=== PATIENT | female | born 1975 | race Caucasian/White ===

== ENCOUNTER 2017-01-01 13:36 | Observation (INO) ==
--- NOTE | 2017-01-01 14:00 | EKG Report ---
Stationary ECG Study [facility] Test Date: 01/01/2017 2:01:15 PM Pat Name: ELIEZER KEYS Department: Room: Gender: F Hide Dropper: : 1975 Requested by: Jonathan Yuen Order Number: [id number] Reading MD: JAE WING Intervals Naoma Rate: 120 P: 45 ND: 180 QRS: -54 QRSD: 106 T: 107 QT: 341 QTc: 412 Interpretive Statements SINUS TACHYCARDIA PATTERN CONSISTENT WITH PULMONARY DISEASE LEFT ANTERIOR FASCICULAR BLOCK LEFT VENTRICULAR HYPERTROPHY AND ST-T CHANGE Electronically Signed On 01-02-17 18:58:34 CDT by JAE WING [email or web address]
[2017-01-01] MEDS ORDERED: ONDANSETRON 4 MG/2 ML VIAL IV STA (14:01)
[2017-01-01] MEDS ORDERED: SODIUM CHLORIDE 0.9% 1,000 ML IV STA (14:01)
[2017-01-01] MEDS ORDERED: PROMETHAZINE 25 MG/1 ML VIAL IM STA (14:01)
[2017-01-01 14:05] LABS: Basophils # 0.1 10*3/uL (0.0-0.2); Basophils % 0.2 % (0.0-0.8); Hematocrit 45.9 VOL% (35.7-47.0); Hemoglobin 15.4 GM/DL (12.0-16.0); Immature Granulocytes % 1.7 %; Immature Granulocytes Absolute 0.46 #; Lymphocytes # 4.8 10*3/uL (1.4-4.0); Lymphocytes % 17.8 % (21.3-54.2); Mean Corpuscular HGB Conc 33.6 GM/DL (32-36); Mean Corpuscular Hemoglobin 27 PG (27-34); Mean Corpuscular Volume 80.8 FL (87-102); Mean Platelet Volume 10.3 FL (9.6-12.0); Monocytes # 1.4 10*3/uL (0.11-0.8); Monocytes % 5.3 % (1.7-12.7); Neutrophils # 20.4 10*3/uL (1.4-7.4); Platelet Count 514 T/CUMM (130-400); Red Blood Count 5.68 MC/CUMM (3.8-5.5); Red Cell Distribution Width 14.8 % (9.3-17.3); White Blood Count 27.1 T/CUMM (4-12)
[2017-01-01 14:16] LABS: INR 1.1; PT Patient Result 11.4 SECS; Partial Thromboplastin Time 28.7 SECS (0-40)
[2017-01-01] MEDS ORDERED: ONDANSETRON 4 MG/2 ML VIAL ONE ×2 (14:19→17:26)
[2017-01-01] MEDS ORDERED: PROMETHAZINE 25 MG/1 ML VIAL ONE (14:19)
--- NOTE | 2017-01-01 14:28 | Emergency Department Note ---
Yakov Witt Gwan, am scribing for, and in the presence of, Jonathan Rios MD 14:05 . Blanca Witt James D, MD, personally performed the services described in this documentation, ascribed by Vishal Nagy in my presence, and it is both accurate and complete 425 . Arrival - Arrival Chief Complaint: Weakness ED Nursing Triage Note: N/V AND WEAKNESS, PT TREATED FOR CHRONIC BACK PAIN BY DR URENA, CHANGED FROM MORPHINE TO FENTANYL PATCHES YESTERDAY, SYMPTOMS STARTED AFTER CHANGE IN MEDICATIONS, CP ONSET JUST SEX OFFENDER TREATMENT PROFESSIONAL, -SOB,-DIAPHORESIS, PT ALSO STATES SHE PASSED OUT 3 TIMES TODAY NOT SURE IF SHE HIT HER HEAD Mode of Arrival: Stretcher Limitations: No Limitations Source: Patient, Old Records Reviewed, RN Notes Reviewed - History of Present Illness HPI Narrative: Pt is a 41 y/o female who presents to the ED for further evaluation. Patient has had sxs of N/V, weakness, SOB, diaphoresis and syncope x3 SEX OFFENDER TREATMENT PROFESSIONAL. Patient confirmed that she is being [facility] and that her Fentanyl Patches were recently changed from Morphine. She continued to note that she underwent a Kidney Transplant in 2008 and denies any episodes of rejection. Pt has a PMHx of cardiac dysrhythmia, CHF, valvular heart disease and renal failure. Onset (ago): hour(s) Consistency: constant Severity: moderate Allergies/Adverse Reactions: Allergies Allergy/AdvReac Type Severity Reaction Status Date / Time meperidine [From Demerol] Allergy Severe RASH Verified 04/19/15 09:04 naproxen Allergy Severe HIVES Verified 04/19/15 09:04 Tizanidine [From Zanaflex] Allergy Severe HIVES Verified 04/19/15 09:02 Cefaclor [From Ceclor] Allergy RASH Verified 01/22/15 09:23 vancomycin Allergy RASH Verified 01/22/15 09:23 Home Medications: Home Medications Medication Instructions Recorded Confirmed Type Tacrolimus Cap [Prograf] 3 mg PO BID 01/22/15 01/01/17 History predniSONE TAB [PredniSONE] 10 mg PO QOTHER DAY 12/17/15 01/01/17 History Oxycodone HCl/Acetaminophen 1 each PO Q8H 01/01/17 01/01/17 History [Oxycodone-Acetaminophen 10-325] Zolpidem Tartrate [Zolpidem 10 mg PO BEDTIME 01/01/17 01/01/17 History Tartrate] azaTHIOprine [Azasan] 75 mg PO DAILY 01/01/17 01/01/17 History fentaNYL 12 MCG/HR PATCH 1 patch TOP Q3D 01/01/17 01/01/17 History [Duragesic 12 Patch] Review of System - Review of System 12 point system: reviewed and no additional remarkable complaints except as stated - Review of System Constitutional: Present: as per HPI, diaphoresis, weakness Eyes: Absent: discharge, pain Head/Ears/Nose/Throat: Absent: earache Respiratory: Absent: cough Cardiovascular: Present: as per HPI, chest pain Gastrointestinal: Present: as per HPI, abdominal pain, nausea, vomiting. Absent : diarrhea Musculoskeletal: Absent: arm pain, back pain, leg pain, neck pain Medical,Surgical,& Family Hx - Medical History Cardio: History of: Cardiac Dysrhythmia (skipped beats), CHF, Valvular Heart Disease Renal: History of: Renal Failure, Renal Problems (KIDNEY TRANSPLANT ) Gastrointestinal: History of: GI Problems Musculoskeletal: History of: Back/Neck Problems (Scoliosis) - Surgical History Cardiac Surgeries: Sugical HX of: Vascular Access Devices (Placement and removal for temporary dialysis.) Thoracic Surgeries: Surgical HX of;: Kidney (Renal Surgery) (Three transplanted kidneys) Orthopedic Surgeries: Surgical HX of;: Orthopedic Surgery (Knee/Hip surgery 1988 ) - Social History Smoking Status: Never smoker Exam Physical Examination: GENERAL: This is an obese white female in no apparent distress. VITAL SIGNS: HEENT: Head is normocephalic and atraumatic. Pupils are equally round and reactive to light. Extraocular movement are intact. Oropharynx is benign with moist mucous membranes. NECK: Neck is soft and supple without tenderness. There are no masses. There is no lymphadenopathy. LUNGS: Lungs are clear to auscultation bilaterally. Chest rises symmetrically. There is no chest wall tenderness. CV: Heart is regular rate and rhythm without murmurs, rubs, or gallops. ABDOMEN: Abdomen is soft, non-tender to palpation. There are no abnormal masses palpated. There is no organomegaly. Bowel sounds are present and active. SKIN: Skin is warm and dry. No rash. EXTREMITIES: Patient has full range of motion without tenderness. There is no pedal edema. NEUROLOGIC: Awake, alert, and oriented x4. Cranial nerves II through XII are grossly intact. There are no motorsensory deficits. PSYCHIATRIC: Normal affect. Normal mood. Vital Signs: Vital Signs Temperature 98.3 F 01/01/17 13:39 Pulse Rate 120 H 01/01/17 13:39 Respiratory Rate 12 01/01/17 13:39 Blood Pressure 106/55 01/01/17 13:39 O2 Sat by Pulse Oximetry 96 01/01/17 13:39 Course Course Narrative: Patient was given IV fluid boluses, Rocephin, blood cultures, and renal ultrasound while in the emergency department. - Consultations Consultation #1: I had a lengthy discussion with Dr. Byers the on-call transplant project program manager at [facility]. We discussed treatment which includes aggressive fluid bolusing, cultures, IV antibiotics, and renal imaging. This will all be performed. At the present time [facility] does not have any beds available. Patient will need to be admitted at [facility]. In the morning the attending physician at [facility] will need to contact Dr. Byers or Dr. Dubose on the transplant nephrology service to discuss bed placement. Time: 16:07 Consultation #2: Discussed with hospitalist. Patient will be admitted to their service. Time: 16:07 Procedures - EJ/Peripheral Line Neck R Consent Obtained: verbal consent Time Out Performed: Yes Skin Cleansed in Sterile Fashion: Yes Size: Other (20-gauge and 22-gauge 20 cath) IV Secured and Dressing Applied: Yes Patient Tolerated Procedure: well, no complications Results - Labs CBC & BMP: 01/01/17 13:56 01/01/17 13:56 Lab Results: I have reviewed the patients labs Labs: Laboratory Tests 01/01/17 13:56 WBC 27.1 H RBC 5.68 H Hgb 15.4 Hct 45.9 MCV 80.8 L Plt Count 514 H Neut % (Auto) 75.0 H Lymph % (Auto) 17.8 L Neut # (Auto) 20.4 H Lymph # (Auto) 4.8 H Callahan # (Auto) 1.4 H - EKG EKG results: interpreted by ERMD - Impressions EKG: Sinus tachycardia with a rate of 120, left anterior fascicular block, LVH, nonspecific ST-T wave changes. - Diagnostic Findings Procedure: Chest x-ray: image reviewed by me (No infiltrates, no pleural effusions, no cardiomegaly.) Disposition Clinical Impression: Nausea and vomiting, Dehydration, Status post kidney transplant, Acute renal failure, Hypokalemia, Leukocytosis Case discussed with: patient, patient's family Condition: Guarded Time of Disposition: 16:08
[2017-01-01 14:35] LABS: Alanine Aminotransferase 17 U/L (13-56); Albumin 4.3 G/DL (3.4-5.0); Alkaline Phosphatase 143 U/L (45-117); Aspartate Amino Transferase 17 U/L (0-37); Blood Urea Nitrogen 62 MG/DL (7-18); Calcium 8.4 MG/DL (8.5-10.1); Glucose 121 MG/DL (74-106); Osmolality,Calculated 282.5 MOS/KG (273-304); Sodium 132 MMOL/L (136-145); Total Protein 8.2 G/DL (6.4-8.3); Troponin I Only 0.018 NG/ML (0.00-0.045)
--- NOTE | 2017-01-01 14:51 | XRay Report ---
2 view chest. Indication: Nausea and vomiting. Renal transplant patient. Comparison: December 17, 2015. The heart is normal in size. The pulmonary vasculature is normal. The lung remy are clear. No pneumothorax or pleural effusion. There is a prominent thoracic scoliosis, convex to the right. Impression: No acute abnormality. PROCEDURE INTERPRETED AT [facility] DEPARTMENT OF RADIOLOGY Final Report Signed by: Dr. Shawna Kinsey
[2017-01-01 15:33] LABS: Lymphocytes 17 % (20-55); Platelet Estimate Normal; Segmented Neutrophils 80 % (50-85); Total Cells Counted 100
[2017-01-01 15:34] LABS: Polychromasia Few
[2017-01-01] MEDS ORDERED: POTASSIUM CHLORIDE 20 MEQ TABLET PO STA (15:45)
[2017-01-01] MEDS ORDERED: SODIUM CHLORIDE 0.9% 2,000 ML IV STA (16:02)
[2017-01-01] MEDS ORDERED: cefTRIAXone 1,000 MG in SODIUM CHLORIDE 0.9% 100 ML IV STA (16:04)
--- NOTE | 2017-01-01 16:19 | Hospitalist History & Physical ---
Assessment and Plan (1) Acute renal failure Status: Acute Assessment and plan: We will treat as requested per [facility] transplant team. Will contact in AM for further direction. Current Visit: Yes (2) Dehydration Status: Acute Assessment and plan: Will aggressively rehydrate per [facility] recommendations. Current Visit: Yes (3) Hypokalemia Status: Acute Assessment and plan: 3.0 at admission; will correct and re-check in AM. Current Visit: Yes (4) Leukocytosis Status: Acute Assessment and plan: Will obtain oakes cultures and start empiric antibiotic therapy. Current Visit: Yes History of Present Illness Chief complaint: nausea and vomiting History of present illness: This is very unfortunate 41 year old female that presented to the ED at [facility] on this afternoon with a chief complaint of nausea and vomiting x3 days. The patient has a rather impressive medical history significant for renal failure, scoliosis, valvular heart disease, and gastroparesis. She has a surgical history of renal transplants x3; the last in 2008. She is followed by [facility] for this. In addition, she has chronic back pain and is followed by Dr. Petit here in [place]. She reports the onset of above symptoms three days ago shortly after her pain medications were changed. Apparently, she was seen by Dr. Petit on Thursday and her Morphine ER wash discontinued and Fentanyl was started. She reported a decrease in urinary output on yesterday. She states that it was "slow " but eventually she became anuric this morning. She became alarmed and decided to seek medical attention. At the time of presentation, she was found to be dehydrated and hypotensive. Labs were obtained; which reveled a potassium level at 3.0. Her renal function was poor with a BUN of 62 and Creatinine of 3.20. Her WBC's were grossly elevated at 27,000. Dr. Rios, the ED physician contacted [facility] for further direction. He spoke with Dr. Byers the on-call transplant decommissioning well site manager. Dr. Byers suggested an appropriate treatment plan which includes aggressive fluid boluses, cultures, IV antibiotics, and renal imaging. was informed that there were no available beds on the transplant unit currently. After brief discussion with and Dr. Werner, the patient will be admitted to the hospitalist services for observation status. We will contact the transplant team at [facility] tomorrow for further direction to discuss bed placement. Home Medications Medication Instructions Recorded Confirmed Type Tacrolimus Cap [Prograf] 3 mg PO BID 01/22/15 01/01/17 History predniSONE TAB [PredniSONE] 10 mg PO QOTHER DAY 12/17/15 01/01/17 History Oxycodone HCl/Acetaminophen 1 each PO Q8H 01/01/17 01/01/17 History [Oxycodone-Acetaminophen 10-325] Zolpidem Tartrate [Zolpidem 10 mg PO BEDTIME 01/01/17 01/01/17 History Tartrate] azaTHIOprine [Azasan] 75 mg PO DAILY 01/01/17 01/01/17 History fentaNYL 12 MCG/HR PATCH 1 patch TOP Q3D 01/01/17 01/01/17 History [Duragesic 12 Patch] Allergies Allergy/AdvReac Type Severity Reaction Status Date / Time meperidine [From Demerol] Allergy Severe RASH Verified 04/19/15 09:04 naproxen Allergy Severe HIVES Verified 04/19/15 09:04 Tizanidine [From Zanaflex] Allergy Severe HIVES Verified 04/19/15 09:02 Cefaclor [From Ceclor] Allergy RASH Verified 01/22/15 09:23 vancomycin Allergy RASH Verified 01/22/15 09:23 Medical,Surgical,& Family Hx - Medical History Cardio: History of: Cardiac Dysrhythmia (skipped beats), CHF, Valvular Heart Disease Renal: History of: Renal Failure, Renal Problems (KIDNEY TRANSPLANT ') Gastrointestinal: History of: GI Problems Musculoskeletal: History of: Back/Neck Problems (Scoliosis) - Surgical History Cardiac Surgeries: Sugical HX of: Vascular Access Devices (Placement and removal for temporary dialysis.) Thoracic Surgeries: Surgical HX of;: Kidney (Renal Surgery) (Three transplanted kidneys) Orthopedic Surgeries: Surgical HX of;: Orthopedic Surgery (Knee/Hip surgery 1988 ) - Social History Smoking Status: Never smoker 12 point system: reviewed and no additional remarkable complaints except as stated Exam - Constitutional Vitals: Period Temp Pulse Resp BP Sys/Mosley Pulse Ox Last 24 Hr 98.3 F 120 12 106/55 96 General appearance: normal weight, no acute distress - Head Head exam: Present: normal inspection, normocephalic, atraumatic - Eye Eye exam: Present: EOMI. Absent: conjunctival injection Pupils: Present: RADHA, normal accommodation - ENT ENT exam: Present: normal exam, normal external ear exam, normal oropharynx - Neck Neck exam: Present: normal inspection. Absent: lymphadenopathy, meningismus, tenderness, thyromegaly - Respiratory Respiratory exam: Present: clear to auscultation bilaterally. Absent: rales, rhonchi, stridor, wheezes - Cardiovascular Cardiovascular exam: Present: regular rate and rhythm. Absent: carotid bruit, diastolic murmur, gallop, JVD, rubs, systolic murmur - GI/Abdominal GI/Abdominal exam: Present: normal bowel sounds, soft - Extremities Exam Extremities exam: Present: normal inspection, full ROM. Absent: normal capillary refill, calf tenderness, edema - Back Exam Back exam: Present: normal inspection - Neurological Exam Neurological exam: Present: alert, oriented X3, CN II-XII intact - Psychiatric Psychiatric exam: Present: flat affect - Skin Skin exam: Present: warm, dry Results - Labs CBC & BMP: 01/01/17 13:56 01/01/17 13:56 Lab Results: I have reviewed the past 24 hour labs Quality Measures - VTE Deep Vein Thrombosis/Pulmonary Embolism Present on Admission: No
--- NOTE | 2017-01-01 16:24 | CT Report ---
CT head/brain wo con INDICATION: Syncope The total DLP is 914.6 mGy*cm. COMPARISON: Noncontrast CT head dated 12/17/2015 Technique: Serial axial tomographic images of the brain were obtained without the use of intravenous contrast. Dose reduction: This CT exam was performed using one or more of the following dose reduction techniques: Automated exposure control, automated adjustment of the mA and/or KV according to patient size, or use of iterative reconstruction technique. Findings: Mild generalized atrophy with prominence of the sulci is noted, which appears essentially unchanged from prior. Minimal periventricular white matter hypodensity changes are nonspecific but do not demonstrate mass effect and are therefore most compatible with sequela of chronic microvascular ischemia. There is no evidence of vascular territory infarct or acute intracranial hemorrhage. The sahu-white matter differentiation is generally maintained. There is no hydrocephalus. The basilar cisterns are patent. The visualized paranasal sinuses, mastoid air cells and middle ear cavities are predominantly clear. The included orbits and their contents appear within normal limits. The visualized osseous structures and overlying soft tissues of the skull and face demonstrate no acute abnormality. IMPRESSION: No acute intracranial abnormality. No significant change in mild atrophy and findings suggestive of sequela of chronic microvascular ischemia. PROCEDURE INTERPRETED AT [facility] DEPARTMENT OF RADIOLOGY Final Report Signed by: Familia Fernandez
--- NOTE | 2017-01-01 16:48 | Ultrasound Report ---
US renal doppler Indication: Decreased urine output, history of renal transplant. Comparison: Prior ultrasound dated 07/03/2009. Technique: Multiple longitudinal and transverse real-time sonographic images of the transplant kidney within the left lower quadrant of the abdomen were obtained. Findings: The transplant kidney measures 10 x 4.9 x 4.6 cm. There is no evidence of nephrolithiasis or abnormal perinephric fluid collections. Renal cortical echogenicity and thickness are within normal limits. There is no hydronephrosis. Peak systolic velocities and Resistive indices are as follows: Aorta: Peak systolic velocity 31.5 cm/s Proximal Renal artery: Peak systolic velocity 57.4 cm/s; RI = 0.62 Segmental renal artery: Peak systolic velocity 24.3 cm/s; RI = 0.51 Distal renal artery: Peak systolic velocity 21.2 cm/s; RI = 0.52 Renal vein is patent and demonstrates normal phasic flow on spectral analysis with peak systolic velocity 12 cm/s. There is no evidence of surrounding ascites. Ultrasound images were captured and stored. IMPRESSION: Unremarkable ultrasound of the transplant kidney. Peak systolic velocities and resistive indices are within normal limits. PROCEDURE INTERPRETED AT [facility] DEPARTMENT OF RADIOLOGY Final Report Signed by: Familia Fernandez
--- NOTE | 2017-01-01 16:53 | Event Note ---
I saw this patient in collaboration with the [place] respiratory clinician. This note represents a shared visit. 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 She says that the graft lasted for 11 years, and then failed. She underwent a second transplant, and it lasted for about 4-1/2 years. She underwent her third transplant about 5 years ago, and has had no episodes of rejection as far as she knows. She says that her baseline creatinine is about 1.9. For the past couple of days, she has had some nausea and vomiting. She went out of her house this morning and passed out in the yard. She then passed out 2 more times in her house. She says that she feels dizzy when she sits up. She has noted no urine output for the past day or so. We called her transplant machine shop helper in [place], and they were ready to accept her onto their service, but had no beds. They suggested that we begin IV fluids, place a Bains catheter, and begin empiric antibiotics after cultures. Her white count is 27,000. Examination is as described in the APC note. We will continue the plan of care as outlined above, in will plan on transferring her to [place] in the morning , assuming that they have a bed. This note was completed using [employer] voice recognition software. There may be premises technician errors as a result.
[2017-01-01 17:11] LABS: Apearance,Urine CLOUDY (Clear); Bacteria,Urine Occasional /HPF (Few); Bilirubin,Urine Negative (Negative); Blood, Urine Negative (Negative); Glucose,Urine (UA) Negative (Negative); Ketones,Urine 5 mg/dL (Negative); Mucus,Urine Occasional /LPF (Occasional); Nitrite,Urine Negative (Negative); Protein,Urine 100 MG/DL; RBC,Urine 3 /HPF (0-4); Squamous Epithelial Cell,Urine Occasional /HPF (0-10); Urine Color Yellow (Yellow); Urine Specific Gravity 1.019 (1.001-1.035); Urine Urobilinogen < 2.0 EU/DL (0.2-1.0); WBC,Urine 1 /HPF (0-6)
[2017-01-01 17:14] LABS: Barbiturates Screen,Urine Negative (Negative); Benzodiazepines Screen,Urine Negative (Negative); Cannabinoid Screen,Urine Negative (Negative); Opiate Screen,Urine Positive (Negative); Phencyclidine Screen,Urine Negative (Negative)
[2017-01-01] MEDS ORDERED: cefTRIAXone 1,000 MG VIAL ONE (17:26)
[2017-01-01] MEDS: SODIUM CHLORIDE 0.9% 1,000 ML IV SCH ×3 (19:45→23:49)
[2017-01-01] MEDS: ONDANSETRON 4 MG/2 ML VIAL IV PRN (21:51)
[2017-01-01] MEDS: POTASSIUM CHLORIDE RIDER 10 MEQ in PREMIX 1 EACH IV PRN ×2 (22:06→23:05)
[2017-01-02] MEDS: POTASSIUM CHLORIDE RIDER 10 MEQ in PREMIX 1 EACH IV PRN ×3 (00:05→02:15)
[2017-01-02] MEDS: ONDANSETRON 4 MG/2 ML VIAL IV PRN ×2 (02:11→10:41)
[2017-01-02] MEDS: SODIUM CHLORIDE 0.9% 1,000 ML IV SCH ×4 (03:56→17:34)
[2017-01-02 08:48] LABS: Albumin 2.7 G/DL (3.4-5.0); Bilirubin,Total 0.4 MG/DL (0.2-1.0); Calcium 6.8 MG/DL (8.5-10.1); Magnesium 1.9 MG/DL (1.8-2.4); Osmolality,Calculated 286.4 MOS/KG (273-304); Potassium 3.5 MMOL/L (3.5-5.1); Total Protein 5.3 G/DL (6.4-8.3)
[2017-01-02] MEDS ORDERED: predniSONE 10 MG TABLET PO SCH (09:00)
[2017-01-02] MEDS ORDERED: azaTHIOprine 50 MG TABLET PO SCH (09:00)
[2017-01-02] MEDS ORDERED: TACROLIMUS 0.5 MG CAPSULE PO SCH (09:15)
[2017-01-02] MEDS ORDERED: fentaNYL 12 MCG/HR PATCH TRANSDERM SCH (09:30)
[2017-01-02] MEDS: oxyCODONE/ACETAMINOPHEN 5-325 MG TABLET PO SCH ×2 (10:12→17:34)
--- NOTE | 2017-01-02 15:57 | Discharge Summary ---
Hospital Course - Hospital Course Hospital Course: Discharge diagnosis: 1. Volume depletion with hypotension and syncope 2. Transient acute kidney injury, likely due to #1 3. Renal transplant status 4. Medullary cystic kidney disease The patient presented to the hospital following a syncopal episode at home. She had some gastroenteritis symptoms for day or so prior to admission. She went outside to put her dog in the kennel, and passed out. She then passed out 2 more times in the house. She came to the hospital and was found to be hypotensive. She has an known kidney transplant, and her creatinine was 3.5. We called the transplant center in [place], and they suggested admission to the hospital with IV fluids. They had actually requested that we transfer her to [place], but they did not have a bed to accept her. After about 24 hours in the hospital receiving IV fluids, her renal function improved to a creatinine of about 1.5. This is her baseline. Her symptoms had improved. She began making urine. She was up and about in the room. We discontinued her Bains catheter, and she continued to make urine. I called the transplant center in [place], and spoke to her transplant underwriting analyst. They suggested that we discharge the patient home, and have her repeat a serum creatinine in about a week or so. I discussed this plan with the patient, and she is agreeable. Medication reconciliation has been performed. Renal select diet. Activity as tolerated. This note was completed using [employer] voice recognition software. There may be personnel research psychologist errors as a result. Discharge Plan - Discharge Data Disposition: Disch To Home/Self Care Condition at Discharge: Stable Discharge Diet: advance to your usual diet Activity: resume usual activities as tolerated Hygiene: no restrictions Weight Bearing at Discharge: full weight bearing Driving: no restrictions - Discharge Medications Continue Tacrolimus Cap [Prograf Cap] 3 mg PO BID predniSONE TAB [PredniSONE] 10 mg PO QOTHER DAY fentaNYL 12 MCG/HR PATCH [Duragesic 12 Patch] 1 patch TOP Q3D Oxycodone HCl/Acetaminophen [Oxycodone-Acetaminophen 10-325] 1 each PO Q8H Zolpidem Tartrate 10 mg PO BEDTIME azaTHIOprine [Azasan] 75 mg PO DAILY - Follow Up or Referral - Forms/Instructions Exam - Constitutional Vitals: Period Temp Pulse Resp BP Sys/Mosley Pulse Ox Last 24 Hr 97.8 F-98.9 F 85-105 16-20 138-152/72-98 92-99 Vital signs are noted above. Heart is regular with no murmur. Lungs are clear. She is awake and alert. Discharge Results Labs on day of discharge: Labs from last 24 hours 01/02/17 01/02/17 01/01/17 08:03 08:03 16:55 Sodium 140 Potassium 3.5 Chloride 105 Carbon Dioxide 25 Anion Gap 13.5 BUN 35 H D Creatinine 1.50 H GFR Calculation 42 BUN/Creatinine Ratio 23.00 H Glucose 106 Calculated Osmolality 286.4 Calcium 6.8 L Magnesium 1.9 Total Bilirubin 0.40 AST 12 ALT 9 L Alkaline Phosphatase 92 B-Natriuretic Peptide 174 H Total Protein 5.3 L Albumin 2.7 L Globulin 2.6 Albumin/Globulin Ratio 1.0 L Urine Color Urine Appearance Urine pH Ur Specific [place] Urine Protein Urine Glucose (UA) Urine Ketones Urine Blood Urine Nitrate Urine Bilirubin Urine Urobilinogen Urine Leukocytes Urine RBC Urine WBC Ur Squamous Epith Cells Urine Bacteria Urine Mucus Ur Culture Indicated? Urine Opiates Screen Positive H Ur Barbiturates Screen Negative Ur Phencyclidine Scrn Negative U Amphetamine/Methamph Negative U Benzodiazepines Scrn Negative U Cocaine Metab Screen Negative U Cannabinoids Screen Negative 01/01/17 16:55 Sodium Potassium Chloride Carbon Dioxide Anion Gap BUN Creatinine GFR Calculation BUN/Creatinine Ratio Glucose Calculated Osmolality Calcium Magnesium Total Bilirubin AST ALT Alkaline Phosphatase B-Natriuretic Peptide Total Protein Albumin Globulin Albumin/Globulin Ratio Urine Color Yellow Urine Appearance Cloudy Urine pH 5.0 Ur Specific [place] 1.019 Urine Protein 100 Urine Glucose (UA) Negative Urine Ketones 5 Urine Blood Negative Urine Nitrate Negative Urine Bilirubin Negative Urine Urobilinogen < 2.0 H Urine Leukocytes Negative Urine RBC 3 Urine WBC 1 Ur Squamous Epith Cells Occasional Urine Bacteria Occasional Urine Mucus Occasional Ur Culture Indicated? Ordered separately Urine Opiates Screen Ur Barbiturates Screen Ur Phencyclidine Scrn U Amphetamine/Methamph U Benzodiazepines Scrn U Cocaine Metab Screen U Cannabinoids Screen Preliminary micro results at discharge 01/01/17 16:55 Urine Culture - Preliminary Urine,Catheterized No Growth at 12 hours. DS: Provider Date of admission: 01/01/17 16:10 Primary care physician: . No PCP Attending physician on admission: Viraj Werner MD Consults: 01/01/17 16:16 Consult to Case Mgmt/Social Srvs [CONS] Routine Reason for Case Mgmt/Social Srvs: Rehab Other Consult Comment: Transfer to [facility] in AM 01/01/17 18:26 Consult to Pharmacy [CONS] Routine Reason for Pharmacy Consult: Adjust Meds Renal Funct Discharging clinician: Viraj Werner MD Expected date of discharge: 01/02/17
[2017-01-02 16:02] VITALS: BP 142/99
== END 2017-01-02 16:30 | disposition home or self-care (01) ==
LOC: EDUNIT# → EDBD → N.ED 13:36 → N.EDINP 13:36 → N.5E 18:13
PROVIDERS: ADMIT Internal Medicine Geriatric Medicine; ATTEND Internal Medicine Geriatric Medicine

== ENCOUNTER 2017-05-06 11:12 | Inpatient (IN) ==
[~2017-05-06 11:12] MED LIST: LIDOCAINE 2% 5 ML VIAL ONE; PROPOFOL 200 MG/20 ML VIAL IV ONE
[2017-05-06] MEDS ORDERED: MORPHINE 2 MG/1 ML SYRINGE IV STA (11:47)
[2017-05-06] MEDS ORDERED: ONDANSETRON 4 MG/2 ML VIAL IV STA (11:47)
[2017-05-06] MEDS ORDERED: NITROGLYCERIN 2% OINT 1 INCH/GM PACK TOP STA (11:47)
[2017-05-06] MEDS ORDERED: ALUM/MAG/SIMETH/LIDO VISC 1:1 30 ML BOTTLE PO STA (11:47)
--- NOTE | 2017-05-06 12:02 | Emergency Department Note ---
Artemio Witt Hilary, am scribing for, and in the presence of, Nigel Cedillo MD 11:52. Mamadou Witt Charles R, MD, personally performed the services described in this documentation, ascribed by Ann Marie Ulloa in my presence, and it is both accurate and complete . Arrival - Arrival Chief Complaint: Chest Pain Stated Complaint: CP ED Nursing Triage Note: PT C/O MIDSTERNAL CHEST PAIN SINCE 0500 THIS AM. DENIES RADIATING PAIN. DESCRIBES "SOMEONE SITTING ON HER CHEST." ASA AND NTG GIVEN PER EMS. Mode of Arrival: Stretcher Limitations: No Limitations Source: Patient, RN Notes Reviewed Time Seen by Provider: 05/06/17 11:30 - History of Present Illness HPI Narrative: Pt is a 41 y/o female brought to the ED via EMS with c/o chest pain which onset at 0500. Pt states that her chest hurts right in the center and it feels like someone "punched her in the back". She doesn't feel like she has had this problem in the past. She has a PMHx of CHF, Valvular heart disease, skipped heart beats, renal failure and Gastroporisis. No other complaints or problems stated in the ED. Onset (ago): hour(s) Consistency: constant Severity: moderate Severity scale (1-10): 2 Quality: sharp Allergies/Adverse Reactions: Allergies Allergy/AdvReac Type Severity Reaction Status Date / Time meperidine [From Demerol] Allergy Severe RASH Verified 05/06/17 11:25 naproxen Allergy Severe HIVES Verified 05/06/17 11:25 Tizanidine [From Zanaflex] Allergy Severe HIVES Verified 05/06/17 11:25 Cefaclor [From Ceclor] Allergy RASH Verified 05/06/17 11:25 vancomycin Allergy RASH Verified 05/06/17 11:25 Home Medications: Home Medications Medication Instructions Recorded Confirmed Type Tacrolimus Cap [Prograf Cap] 3 mg PO BID 01/22/15 01/01/17 History predniSONE TAB [PredniSONE] 10 mg PO QOTHER DAY 12/17/15 01/01/17 History Oxycodone HCl/Acetaminophen 1 each PO Q8H 01/01/17 01/01/17 History [Oxycodone-Acetaminophen 10-325] Zolpidem Tartrate 10 mg PO BEDTIME 01/01/17 01/01/17 History azaTHIOprine [Azasan] 75 mg PO DAILY 01/01/17 01/01/17 History fentaNYL 12 MCG/HR PATCH 1 patch TOP Q3D 01/01/17 01/01/17 History [Duragesic 12 Patch] LORazepam TAB [Ativan Tab] 0.5 mg PO BEDTIME PRN #14 tablet 04/18/17 Rx Citalopram [CeleXA] 20 mg PO DAILY 05/06/17 History Hydrocodone/Acetaminophen 1 tablet PO Q8H PRN 05/06/17 History [Hydrocodon-Acetaminophn 10-325] Morphine Sulfate [Morphine Sulfate 15 mg PO BID 05/06/17 History ER] Review of System - Review of System 12 point system: reviewed and no additional remarkable complaints except as stated - Review of System Constitutional: Absent: fever Respiratory: Present: respiratory distress (SOB) Cardiovascular: Present: chest pain Gastrointestinal: Absent: nausea Medical,Surgical,& Family Hx - Medical History Cardio: History of: Cardiac Dysrhythmia (skipped beats), CHF, Valvular Heart Disease Psychological: No history of: Anxiety Disorders, ADHD, Behavior Problems, Bipolar Disorder, Depression, Previous Suicide Attempt, Psychiatric/Substance Abuse Tx, Schizophrenia, Violent Behavior, Psychiatric Problems Neurology: No history of: Seizures Renal: History of: Renal Failure, Renal Problems Gastrointestinal: History of: GI Problems (Gastroporisis) Musculoskeletal: History of: Back/Neck Problems (Scoliosis) - Surgical History Cardiac Surgeries: Sugical HX of: Vascular Access Devices (Placement and removal for temporary dialysis.) Thoracic Surgeries: Surgical HX of;: Kidney (Renal Surgery) (Three transplanted kidneys) Patient denies;: Organ Transplant Neurologic Surgeries: Patient denies: Neurologic Surgery HEENT Surgeries: Patient denies: Eye Surgery, Tonsilectomy & Adenoidectomy Orthopedic Surgeries: Surgical HX of;: Orthopedic Surgery (Knee/Hip surgery 1988 ) - Family History Family History: Reports;: Family Heart Disease (father), Family Hypertension Denies;: Family Anesthesia Reaction, Family Cancer, Family Diabetes - Social History Smoking Status: Never smoker Frequency of Alcohol Use: None Type of Drug Use: None Exam Vital Signs: Vital Signs Temperature 97.2 F L 05/06/17 11:12 Pulse Rate 68 05/06/17 13:00 Respiratory Rate 17 05/06/17 13:00 Blood Pressure 143/96 05/06/17 13:00 O2 Sat by Pulse Oximetry 100 05/06/17 13:00 - General General appearance: alert, in no apparent distress - Head Head exam: Present: atraumatic, normocephalic - Eye Eye exam: Present: normal appearance, PERRL, EOMI - ENT ENT exam: Present: mucous membranes moist, TM's normal bilaterally. Absent: mucous membranes dry - Neck Neck exam: Present: full ROM, trachea midline. Absent: tenderness - Chest Chest inspection: Present: symmetric chest wall rise, tenderness (reproducable epigastrum pain and feels bloated) - Respiratory Respiratory exam: Present: normal lung sounds bilaterally. Absent: respiratory distress - Cardiovascular Cardiovascular exam: Present: normal rhythm, tachycardia, normal heart sounds. Absent: murmur, rubs, gallop - Abdominal Exam Abdominal exam: Present: soft, normal bowel sounds, other (looks bloated). Absent: distention, tenderness - Extremities Exam Extremities exam: Present: full ROM, pedal edema (+1). Absent: tenderness - Back Exam Back exam: Present: full ROM. Absent: tenderness - Neurological Exam Neurological exam: Present: alert, oriented X3, CN II-XII intact. Absent: motor sensory deficit - Psychiatric Psychiatric exam: Present: normal affect, normal mood - Skin Skin exam: Present: warm, dry, intact, normal color. Absent: rash Course - Consultations Consultation #1: Dr. Villa will admit patient Time: 13:25 Results - Labs CBC & BMP: 05/06/17 11:30 05/06/17 11:30 Lab Results: I have reviewed the patients labs Labs: Laboratory Tests 05/06/17 11:30 WBC 7.9 RBC 3.77 L Hgb 10.1 L Hct 33.3 L MCHC 30.3 L Plt Count 405 H Laboratory Tests 05/06/17 05/06/17 05/06/17 11:30 11:30 11:30 INR 0.9 Sodium 142 Potassium 5.3 H Chloride 110 H Carbon Dioxide 27 Troponin I B-Natriuretic Peptide 101 H Total Protein 6.3 L Albumin 3.3 L 05/06/17 11:30 INR Sodium Potassium Chloride Carbon Dioxide Troponin I < 0.015 B-Natriuretic Peptide Total Protein Albumin Disposition Clinical Impression: Chest pain, History of renal transplant Case discussed with: patient Disposition: Still a Patient Condition: Stable Time of Disposition: 13:26
--- NOTE | 2017-05-06 12:02 | EKG Report ---
Stationary ECG Study [facility] ER Test Date: 05/06/2017 11:20:38 AM Pat Name: ELIEZER KEYS Department: Room: Gender: F Appointment Coordinator: : 1975 Requested by: Nigel Will Order Number: [id number] Reading MD: LOIS DUNCAN Intervals [place] Rate: 82 P: 9 [place]: 130 QRS: -27 QRSD: 103 T: -25 QT: 366 QTc: 405 Interpretive Statements SINUS RHYTHM BORDERLINE LEFT AXIS DEVIATION MODERATE VOLTAGE CRITERIA FOR LVH, CONSIDER NORMAL VARIANT Electronically Signed On 05-06-17 14:42:24 CDT by LOIS DUNCAN [email or web address]
[2017-05-06 12:05] LABS: Basophils # 0.1 10*3/uL (0.0-0.2); Basophils % 0.8 % (0.0-0.8); Eosinophils # 0.3 10*3/uL (0.0-0.87); Eosinophils % 3.2 % (0.00-10.9); Hematocrit 33.3 VOL% (35.7-47.0); Hemoglobin 10.1 GM/DL (12.0-16.0); Immature Granulocytes % 0.5 %; Immature Granulocytes Absolute 0.04 #; Lymphocytes # 1.9 10*3/uL (1.4-4.0); Lymphocytes % 24.7 % (21.3-54.2); Mean Corpuscular HGB Conc 30.3 GM/DL (32-36); Mean Corpuscular Hemoglobin 27 PG (27-34); Mean Corpuscular Volume 88.3 FL (87-102); Mean Platelet Volume 9.9 FL (9.6-12.0); Monocytes # 0.6 10*3/uL (0.11-0.8); Neutrophils % 63.8 % (38.7-73.9); Platelet Count 405 T/CUMM (130-400); Red Blood Count 3.77 MC/CUMM (3.8-5.5); Red Cell Distribution Width 15.5 % (9.3-17.3); White Blood Count 7.9 T/CUMM (4-12)
[2017-05-06] MEDS ORDERED: NITROGLYCERIN 2% OINT 1 INCH/GM PACK TOP ONE (12:22)
[2017-05-06] MEDS ORDERED: ONDANSETRON 4 MG/2 ML VIAL ONE (12:22)
[2017-05-06] MEDS ORDERED: MORPHINE 2 MG/1 ML SYRINGE ONE (12:22)
[2017-05-06] MEDS ORDERED: ALUM/MAG/SIMETH/LIDO VISC 1:1 30 ML BOTTLE PO ONE ×3 (12:22→22:50)
[2017-05-06 12:30] LABS: INR 0.9; PT Patient Result 9.9 SECS
[2017-05-06 12:32] LABS: Alanine Aminotransferase 15 U/L (13-56); Albumin 3.3 G/DL (3.4-5.0); Alkaline Phosphatase 98 U/L (45-117); Aspartate Amino Transferase 15 U/L (0-37); Bilirubin,Total < 0.39 MG/DL (0.2-1.0); Blood Urea Nitrogen 16 MG/DL (7-18); Calcium 9.3 MG/DL (8.5-10.1); Glucose 88 MG/DL (74-106); Magnesium 2.3 MG/DL (1.8-2.4); Sodium 142 MMOL/L (136-145); Total Protein 6.3 G/DL (6.4-8.3)
[2017-05-06 12:33] LABS: Amylase 60 U/L (25-115); Osmolality,Calculated 282.1 MOS/KG (273-304); Potassium 5.3 MMOL/L (3.5-5.1)
[2017-05-06 13:35] LABS: Apearance,Urine CLEAR (Clear); Bilirubin,Urine Negative (Negative); Blood, Urine Negative (Negative); Glucose,Urine (UA) Negative (Negative); Ketones,Urine Negative (Negative); Nitrite,Urine Negative (Negative); Protein,Urine Negative; RBC,Urine 1 /HPF (0-4); Squamous Epithelial Cell,Urine Occasional /HPF (0-10); Urine Color Yellow (Yellow); Urine Specific Gravity 1.024 (1.001-1.035); Urine Urobilinogen < 2.0 EU/DL (0.2-1.0); WBC,Urine 2 /HPF (0-6)
--- NOTE | 2017-05-06 13:39 | XRay Report ---
2 view chest May 06, 2017 at 1202 hours Indication: Shortness of breath, chest pain Comparison: December 17, 2015 Findings: Cardiomediastinal contours are normal. Lungs are clear bilaterally. No acute osseous abnormalities. S-shaped scoliosis of the thoracolumbar spine is again noted. Visualized upper abdomen demonstrates no acute pathology. Impression: No acute cardiopulmonary findings PROCEDURE INTERPRETED AT [facility] DEPARTMENT OF RADIOLOGY Final Report Signed by: Christofer Bustillos
--- NOTE | 2017-05-06 13:42 | XRay Report ---
Exam: XR abdomen 2V Date: 05/06/2017 11:47 AM Indication: Epigastric pain Comparison: 06/15/2014 Technical: Supine and erect imaging Findings: Compound scoliosis is present. Surgical clips present over the left lower abdomen pelvis area. The lung bases are unremarkable. The liver and spleen shadow and renal shadows are partially obscured. Nonspecific GI pattern is present. Deformity of the left femoral head and neck are present with normal appearance the right femoral head and neck. The pubic rami are intact. Phleboliths are present. Impression: 1. Chronic deformity of the left femoral head with flattening with underlying arthritic changes of the acetabulum. 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 2. Status post surgical changes left lower abdomen pelvis. 3. Compound scoliosis PROCEDURE INTERPRETED AT [facility] DEPARTMENT OF RADIOLOGY Final Report Signed by: Dr. Magdaleno Casey
[2017-05-06] MEDS ORDERED: MAGNESIUM SULF RIDER 4 GM in PREMIX 1 EACH IV PRN (15:53)
[2017-05-06] MEDS ORDERED: MAGNESIUM SULF RIDER 2 GM in PREMIX 1 EACH IV PRN (15:53)
[2017-05-06 17:00] LABS: Basophils # 0.1 10*3/uL (0.0-0.2); Basophils % 0.7 % (0.0-0.8); Eosinophils # 0.2 10*3/uL (0.0-0.87); Eosinophils % 2.5 % (0.00-10.9); Hematocrit 30.3 VOL% (35.7-47.0); Hemoglobin 9.2 GM/DL (12.0-16.0); Immature Granulocytes % 0.5 %; Immature Granulocytes Absolute 0.04 #; Lymphocytes # 2.2 10*3/uL (1.4-4.0); Lymphocytes % 25.2 % (21.3-54.2); Mean Corpuscular HGB Conc 30.4 GM/DL (32-36); Mean Corpuscular Hemoglobin 27 PG (27-34); Mean Corpuscular Volume 88.3 FL (87-102); Mean Platelet Volume 9.6 FL (9.6-12.0); Monocytes # 0.6 10*3/uL (0.11-0.8); Monocytes % 7.2 % (1.7-12.7); Neutrophils # 5.6 10*3/uL (1.4-7.4); Neutrophils % 63.9 % (38.7-73.9); Platelet Count 376 T/CUMM (130-400); Red Blood Count 3.43 MC/CUMM (3.8-5.5); Red Cell Distribution Width 15.4 % (9.3-17.3); White Blood Count 8.7 T/CUMM (4-12)
[2017-05-06] MEDS ORDERED: ENOXAPARIN 80 MG/0.8 ML SYRINGE SUBCUT SCH (17:00)
[2017-05-06] MEDS ORDERED: PANTOPRAZOLE 40 MG TABLET PO ONE (17:07)
[2017-05-06 17:52] LABS: Folate 9.6 NG/ML (5.4-24.0); Vitamin B12 546 PG/ML (211-911)
--- NOTE | 2017-05-06 18:01 | EKG Report ---
Stationary ECG Study [facility] Test Date: 05/06/2017 5:59:34 PM Pat Name: ELIEZER KEYS Department: Room: 295 Gender: F Vice President Of Compliance: ELOISA : 1975 Requested by: Nigel Will Order Number: [id number] Reading MD: LOIS DUNCAN Intervals [place] Rate: 79 P: 6 [place]: 138 QRS: -30 QRSD: 103 T: -38 QT: 378 QTc: 412 Interpretive Statements SINUS RHYTHM BORDERLINE LEFT AXIS DEVIATION VOLTAGE CRITERIA FOR LVH MODERATE T-WAVE ABNORMALITY, CONSIDER LATERAL ISCHEMIA Electronically Signed On 05-06-17 20:34:02 CDT by LOIS DUNCAN [id number]
[2017-05-06] MEDS: MORPHINE ER 15 MG TABLET PO SCH (18:06)
[2017-05-06 18:08] LABS: Sedimentation Rate-Westergren 59 MM/HR (0-20)
[2017-05-06] MEDS: SODIUM CHLORIDE 0.9% 1,000 ML IV SCH (18:10)
--- NOTE | 2017-05-06 18:23 | Cardiology History & Physical ---
Paulo Witt Lesley, LIZ, am scribing for, and in the presence of, Nalini Villa MD 18:22. Assessment and Plan - Time spent with patient Time spent with patient: Greater than 30 minutes (Record review, assessment, and documentation) (1) Anemia Status: Acute Assessment and plan: SEE PLAN LISTED BELOW Current Visit: Yes (2) History of renal transplant Status: Chronic Assessment and plan: SEE PLAN LISTED BELOW Current Visit: Yes (3) Chest pain Status: Acute Assessment and plan: SEE PLAN LISTED BELOW Current Visit: Yes (4) Chronic pain Status: Acute Assessment and plan: SEE PLAN LISTED BELOW Current Visit: Yes History of Present Illness Chief complaint: chest pain History of present illness: TUYERE FITTER: Dr. Villa Ms. Parada is a 41 year old female, who presents to the ER today with complaints of chest pain. She noted that she also felt pain in the left scapular region, she describes the pain is if someone punched her in the back. She rates the pain as an 8 out of 10 on a numeric pain scale. It began in her epigastrium and lower chest. She reports she was awakened at 5 AM this morning with this pain. She reports she took Pepto-Bismol with no improvement in her symptoms, she did take her blood pressure and noticed that it was elevated. She states she called EMS to be transported to the emergency room. She states she was given nitroglycerin as well as aspirin by EMS, she notes nitroglycerin did not relieve her pain. She denied any alleviating factors of the pain, and noted that her pain did worsen with exertion. Her GI cocktail may have improved her symptoms. She also noted cold sweats and some shortness of breath with exertion during the time she was having this pain. She reports when she got to the ER she was given something for her stomach, and this seemed to help her pain. She has noted for the last 2-3 days she has felt fatigued. She denies heart palpitations, edema in the extremities, nausea, vomiting. 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 Past surgical history includes 3 kidney transplants, the last being in 2008, HD shunt placement and removal, hip surgery, knee surgery, and hysterectomy. She denies tobacco use, alcohol use, or illicit drug use. Cardiac risk factors include sedentary life and positive family history of [place] in her father. [facility] and sees them once a year for follow-up. The patient was seen in the ER today lying in bed. She appeared comfortable without distress. She denies ongoing chest pain or shortness of breath, however she has some epigastric tenderness that is reproducible to palpation. She also has some tenderness to the left scapula and paraspinal muscles to palpation. Blood pressure currently is 116/74, heart rate 78, oxygen saturation 100% on 2 L nasal cannula. The patient is afebrile. Labs reviewed: Hemoglobin 10 and hematocrit 33, INR 0.9, sodium 142, potassium 5.3, BUN 16, creatinine 0.9 glucose 88, calcium 9.3, magnesium 2.3, AST and ALT unremarkable , bilirubin unremarkable, BNP 101, troponin I negative, urinalysis negative. EKG reveals sinus rhythm. Chest x-ray reviewed and lungs are clear bilaterally S-type scoliosis of the thoracolumbar spine is noted. Abdominal x-ray reveals chronic deformity of the left femoral head with changes to the acetabulum, status post surgical changes to the left lower abdomen and pelvis, and compound scoliosis noted. ASSESSMENT/PLAN: 1. ATYPICAL CHEST PAIN - reproducible, currently chest pain free, continue to monitor EKGs and cardiac biomarkers. Cardiac biomarkers are negative despite ongoing symptoms. Given her underlying renal transplantation, we would need to proceed very cautiously if we were going to consider cardiac catheterization. Currently the objective data would point away from this approach. 2. EPIGASTRIC PAIN - reproducible, improved with GI cocktail. Start Protonix. Will have GI evaluate her because of her anemia and reproducible epigastric pain. 3. ANEMIA - pt. denies history of anemia, will order anemia panel, Hemoccult stool, and consult GI. 4. STATUS POST RENAL TRANSPLANT- last 2008 due to MCKD, creatinine 0.9, monitor closely. 5. CHRONIC PAIN - continue current plan of care, consult Dr. Petit. We will see if he can assist with a reproducible musculoskeletal chest pain. Home Medications Medication Instructions Recorded Confirmed Type Tacrolimus Cap [Prograf Cap] 3 mg PO BID 01/22/15 05/06/17 History predniSONE TAB [PredniSONE] 10 mg PO QOTHER DAY 12/17/15 05/06/17 History Zolpidem Tartrate 10 mg PO BEDTIME 01/01/17 05/06/17 History Hydrocodone/Acetaminophen 1 tablet PO TID 05/06/17 05/06/17 History [Hydrocodon-Acetaminophn 10-325] Morphine Sulfate [Morphine Sulfate 15 mg PO BID@0700,1900 05/06/17 05/06/17 History ER] azaTHIOprine [Imuran] 75 mg PO QAM 05/06/17 05/06/17 History Allergies Allergy/AdvReac Type Severity Reaction Status Date / Time meperidine [From Demerol] Allergy Severe RASH Verified 05/06/17 11:25 naproxen Allergy Severe HIVES Verified 05/06/17 11:25 Tizanidine [From Zanaflex] Allergy Severe HIVES Verified 05/06/17 11:25 Cefaclor [From Ceclor] Allergy RASH Verified 05/06/17 11:25 vancomycin Allergy RASH Verified 05/06/17 11:25 12 point system: reviewed and no additional remarkable complaints except as stated - Constitutional Constitutional: Present: fatigue. Absent: anorexia, chills, fever(s), frequent falls, headache(s) - EENT Eyes: Absent: blurry vision Nose, mouth and throat: Absent: epistaxis, headache(s), neck pain - Cardiovascular Cardiovascular: Present: chest pain at rest, diaphoresis, dyspnea on exertion. Absent: chest pain with activity, dyspnea, edema, orthopnea, palpitations, PND - Respiratory Respiratory: Present: dyspnea, dyspnea on exertion. Absent: cough, hemoptysis, wheezing - Gastrointestinal Gastrointestinal: Present: abdominal pain. Absent: bloating, change in bowel habits, coffee ground emesis, constipation, hematemesis, hematochezia, melena, nausea, vomiting - Genitourinary Genitourinary: Absent: difficulty urinating, dysuria, flank pain, hematuria - Neurological Neurological: Absent: abnormal gait, abnormal speech, behavioral changes, confusion, dizziness, frequent falls - Psychiatric Psychiatric: Absent: anxiety, depression - Endocrine Endocrine: Present: fatigue. Absent: cold intolerance - Hematologic/Lymphatic Hematologic/Lymphatic: Absent: easy bleeding Medical,Surgical,& Family Hx - Medical History Cardio: History of: Cardiac Dysrhythmia (skipped beats), CHF, Valvular Heart Disease Psychological: No history of: Anxiety Disorders, ADHD, Behavior Problems, Bipolar Disorder, Depression, Previous Suicide Attempt, Psychiatric/Substance Abuse Tx, Schizophrenia, Violent Behavior, Psychiatric Problems Neurology: History of: Migraine No history of: Seizures Endocrine: History of: Dyslipidemia Renal: History of: Renal Failure, Renal Problems Genitourinary: No history of: Bladder Problem Gastrointestinal: History of: GI Problems (Gastroporisis) Musculoskeletal: History of: Back/Neck Problems (Scoliosis) - Surgical History Cardiac Surgeries: Sugical HX of: Vascular Access Devices (Placement and removal for temporary dialysis.) Thoracic Surgeries: Surgical HX of;: Kidney (Renal Surgery) (Three transplanted kidneys), Organ Transplant Neurologic Surgeries: Patient denies: Neurologic Surgery HEENT Surgeries: Patient denies: Eye Surgery, Tonsilectomy & Adenoidectomy Reproductive Surgeries: Surgical HX of;: Hysterectomy Orthopedic Surgeries: Surgical HX of;: Orthopedic Surgery (Knee/Hip surgery 1988 ) - Family History Family History: Reports;: Family Heart Disease (father), Family Hypertension Denies;: Family Anesthesia Reaction, Family Cancer, Family Diabetes - Social History Smoking Status: Never smoker Have you smoked in the last 12 months: No Frequency of Alcohol Use: None Type of Drug Use: None Marital Status: Single Lives With:: Parent Cardiology Physical Exam - Constitutional Vitals: Vital Signs Temp Pulse Resp BP Pulse Ox 97.2 F L 78 16 116/74 100 05/06/17 11:12 05/06/17 13:30 05/06/17 13:30 05/06/17 13:30 05/06/17 13:30 Intake and Output 05/05/17 05/06/17 05/06/17 23:59 07:59 15:59 Other: Weight 165 lb Patient Weight 05/06/17 23:59 Weight 165 lb Exam: General: [Appears well with no apparent distress.] [Pleasant and cooperative. ] [Appears comfortable.] HEENT: [PERRL, normocephalic, atraumatic]. [Mucous membranes moist.] [No jaundice noted.] [Conjunctiva moist and clear, sclerae anicteric.] Neck: [No JVD/HJR, no thyromegaly or lymphadenopathy noted.] [ No carotid bruit appreciated.] Cardiac: [Regular rate and rhythm.] [No murmur rub or gallop.] [PMI is nondisplaced.] Lungs: [Clear to auscultation without accessory muscle use to assist the respiratory pattern.] [Oxygen in use via nasal cannula.] Abdomen: [Soft, bowel sounds normoactive.] [Nondistended.] [No abdominal bruit or thrill noted.] [No masses noted.] Musculoskeletal: [No fluid collection.] [Full range of motion is noted.] Extremities: [No clubbing, cyanosis noted.] [ No edema noted.] [Upper extremity pulses 2+.] [Lower extremity pulses 2+.] [Capillary refill less than 3 seconds.] Skin: [No unusual lesions or rashes.] [No skin breakdown appreciated.] Neuro: [Awake, alert and oriented 3.] [Moves all extremities well without hemiparesis or paralysis.] [No essential tremor is appreciated.] The chest wall and epigastrium are extremely tender to palpation, this reproduces the same symptoms she experienced upon presentation. Result/EKG - Labs CBC & BMP: 05/06/17 16:51 05/06/17 11:30 Lab Results: I have reviewed the past 24 hour labs Labs: Laboratory Results - last 24 hr 05/06/17 05/06/17 05/06/17 11:30 11:30 11:30 WBC RBC Hgb Hct MCV MCH MCHC RDW Plt Count MPV Neut % (Auto) Lymph % (Auto) Sierra % (Auto) Eos % (Auto) Baso % (Auto) Neut # (Auto) Lymph # (Auto) Sierra # (Auto) Eos # (Auto) Baso # (Auto) Immature Gran % Nucleated RBC % Immature Gran # Nucleated RBCs # Immature Plt Fraction INR 0.9 PT Patient/Control Mix 9.9 Sodium 142 Potassium 5.3 H Chloride 110 H Carbon Dioxide 27 Anion Gap 10.3 BUN 16 Creatinine 0.90 GFR Calculation 78 BUN/Creatinine Ratio 17.00 Glucose 88 Calculated Osmolality 282.1 Calcium 9.3 Magnesium 2.3 Total Bilirubin < 0.39 AST 15 ALT 15 Alkaline Phosphatase 98 Troponin I B-Natriuretic Peptide 101 H Total Protein 6.3 L Albumin 3.3 L Globulin 3.0 Albumin/Globulin Ratio 1.1 Amylase 60 Lipase Urine Color Urine Appearance Urine pH Ur Specific Morgan Urine Protein Urine Glucose (UA) Urine Ketones Urine Blood Urine Nitrate Urine Bilirubin Urine Urobilinogen Urine Leukocytes Urine RBC Urine WBC Ur Squamous Epith Cells Ur Culture Indicated? 09/02/1405/06/17 05/06/17 11:30 11:30 11:30 WBC 7.9 RBC 3.77 L Hgb 10.1 L Hct 33.3 L MCV 88.3 MCH 27 MCHC 30.3 L RDW 15.5 Plt Count 405 H MPV 9.9 Neut % (Auto) 63.8 Lymph % (Auto) 24.7 Sierra % (Auto) 7.0 Eos % (Auto) 3.2 Baso % (Auto) 0.8 Neut # (Auto) 5.0 Lymph # (Auto) 1.9 Sierra # (Auto) 0.6 Eos # (Auto) 0.3 Baso # (Auto) 0.1 Immature Gran % 0.5 Nucleated RBC % 0.0 Immature Gran # 0.04 Nucleated RBCs # 0.00 Immature Plt Fraction 0.0 INR PT Patient/Control Mix Sodium Potassium Chloride Carbon Dioxide Anion Gap BUN Creatinine GFR Calculation BUN/Creatinine Ratio Glucose Calculated Osmolality Calcium Magnesium Total Bilirubin AST ALT Alkaline Phosphatase Troponin I < 0.015 B-Natriuretic Peptide Total Protein Albumin Globulin Albumin/Globulin Ratio Amylase Lipase 98.0 Urine Color Urine Appearance Urine pH Ur Specific Morgan Urine Protein Urine Glucose (UA) Urine Ketones Urine Blood Urine Nitrate Urine Bilirubin Urine Urobilinogen Urine Leukocytes Urine RBC Urine WBC Ur Squamous Epith Cells Ur Culture Indicated? 05/06/17 11:48 WBC RBC Hgb Hct MCV MCH MCHC RDW Plt Count MPV Neut % (Auto) Lymph % (Auto) Sierra % (Auto) Eos % (Auto) Baso % (Auto) Neut # (Auto) Lymph # (Auto) Sierra # (Auto) Eos # (Auto) Baso # (Auto) Immature Gran % Nucleated RBC % Immature Gran # Nucleated RBCs # Immature Plt Fraction INR PT Patient/Control Mix Sodium Potassium Chloride Carbon Dioxide Anion Gap BUN Creatinine GFR Calculation BUN/Creatinine Ratio Glucose Calculated Osmolality Calcium Magnesium Total Bilirubin AST ALT Alkaline Phosphatase Troponin I B-Natriuretic Peptide Total Protein Albumin Globulin Albumin/Globulin Ratio Amylase Lipase Urine Color Yellow Urine Appearance Clear Urine pH 5.0 Ur Specific Morgan 1.024 Urine Protein Negative Urine Glucose (UA) Negative Urine Ketones Negative Urine Blood Negative Urine Nitrate Negative Urine Bilirubin Negative Urine Urobilinogen < 2.0 H Urine Leukocytes Negative Urine RBC 1 Urine WBC 2 Ur Squamous Epith Cells Occasional Ur Culture Indicated? Not indicated - Diagnostic Findings Procedure: Abdominal x-ray: report reviewed by me, Chest x-ray: report reviewed by me - EKG EKG results: interpreted by me, sinus rhythm I, Nalini Villa MD, personally performed the services described in this documentation, ascribed by Perlita Bates NP in my presence, and it is both accurate and complete 823 .
[2017-05-06] MEDS: TACROLIMUS 0.5 MG CAPSULE PO SCH (21:25)
[2017-05-06] MEDS: ZALEPLON 5 MG CAPSULE PO SCH (21:25)
--- NOTE | 2017-05-06 22:38 | EKG Report ---
Stationary ECG Study [facility] Test Date: 05/06/2017 10:34:54 PM Pat Name: ELIEZER KEYS Department: Room: 295 Gender: F Metal Neutralizer: : 1975 Requested by: Nalini Villa Order Number: [id number] Reading MD: LOIS DUNCAN Intervals [place] Rate: 99 P: 25 [place]: 125 QRS: -37 QRSD: 97 T: -38 QT: 338 QTc: 394 Interpretive Statements SINUS RHYTHM ABNORMAL LEFT AXIS DEVIATION NONSPECIFIC T WAVE ABNORMALITY Electronically Signed On 05-07-17 18:50:33 CDT by LOIS DUNCAN [email or web address]
[2017-05-06] MEDS ORDERED: HYDROmorphone 2 MG/1 ML VIAL IV ONE (22:48)
[2017-05-06] MEDS ORDERED: HYDROmorphone 2 MG/1 ML VIAL IV PRN (22:48)
[2017-05-07 00:17] LABS: Troponin I Only < 0.015 NG/ML (0.00-0.045)
[2017-05-07 02:22] LABS: Basophils # 0.1 10*3/uL (0.0-0.2); Basophils % 0.9 % (0.0-0.8); Eosinophils # 0.2 10*3/uL (0.0-0.87); Hematocrit 30.2 VOL% (35.7-47.0); Hemoglobin 9.2 GM/DL (12.0-16.0); Immature Granulocytes % 0.2 %; Immature Granulocytes Absolute 0.01 #; Lymphocytes # 2.2 10*3/uL (1.4-4.0); Lymphocytes % 35.1 % (21.3-54.2); Mean Corpuscular HGB Conc 30.5 GM/DL (32-36); Mean Corpuscular Hemoglobin 27 PG (27-34); Mean Platelet Volume 9.8 FL (9.6-12.0); Monocytes # 0.5 10*3/uL (0.11-0.8); Monocytes % 8.1 % (1.7-12.7); Neutrophils # 3.3 10*3/uL (1.4-7.4); Neutrophils % 52.7 % (38.7-73.9); Platelet Count 373 T/CUMM (130-400); Red Blood Count 3.47 MC/CUMM (3.8-5.5); Red Cell Distribution Width 15.4 % (9.3-17.3); White Blood Count 6.3 T/CUMM (4-12)
[2017-05-07 02:53] LABS: Alanine Aminotransferase 13 U/L (13-56); Albumin 2.9 G/DL (3.4-5.0); Alkaline Phosphatase 93 U/L (45-117); Aspartate Amino Transferase 11 U/L (0-37); Bilirubin,Total < 0.39 MG/DL (0.2-1.0); Blood Urea Nitrogen 17 MG/DL (7-18); Calcium 8.7 MG/DL (8.5-10.1); Cholesterol 167 MG/DL (50-200); Glucose 87 MG/DL (74-106); HDL Cholesterol 46 MG/DL (40-60); Magnesium 2.3 MG/DL (1.8-2.4); Osmolality,Calculated 279.4 MOS/KG (273-304); Potassium 4.8 MMOL/L (3.5-5.1); Risk Ratio 3.63; Sodium 140 MMOL/L (136-145); Total Protein 5.6 G/DL (6.4-8.3); Triglycerides 164 MG/DL (2-150); VLDL CHOLESTEROL 32.8 MG/DL
[2017-05-07 02:55] LABS: Troponin I Only < 0.015 NG/ML (0.00-0.045)
[2017-05-07] MEDS: ONDANSETRON 4 MG/2 ML VIAL IV PRN ×3 (05:26→22:23)
[2017-05-07 06:01] LABS: Troponin I Only < 0.015 NG/ML (0.00-0.045)
[2017-05-07] MEDS: MORPHINE ER 15 MG TABLET PO SCH ×2 (06:01→18:20)
--- NOTE | 2017-05-07 06:12 | Pain Management Consult Note ---
Assessment and Plan (1) Chronic pain Status: Acute Assessment and plan: This seems like mainly musculoskeletal chest pain and gastroenterology workup will be done also. Continue current medications for pain Current Visit: Yes Qualifiers: Chronic pain type: chronic pain syndrome Qualified Code(s): G89.4 - Chronic pain syndrome History of Present Illness Chief complaint: Sternal pain with some pressure History of present illness: Ms. Parada is a 41 year old female Patient is well-known to me for chronic history of lumbar spondylosis and chronic opiate dependence. Patient reports she woke up yesterday morning with heaviness and pressure on the chest. Cardiac workup is negative at this point and this is being regarded a musculoskeletal sternal chest pain at this time. Gastroenterology has been consulted and scheduled to see the patient this morning I have reassured the patient and will continue her current home pain medications and morphine IV as needed can be continued until discharge Home Medications Medication Instructions Recorded Confirmed Type Tacrolimus Cap [Prograf Cap] 3 mg PO BID 01/22/15 05/06/17 History predniSONE TAB [PredniSONE] 10 mg PO QOTHER DAY 12/17/15 05/06/17 History Zolpidem Tartrate 10 mg PO BEDTIME 01/01/17 05/06/17 History Hydrocodone/Acetaminophen 1 tablet PO TID 05/06/17 05/06/17 History [Hydrocodon-Acetaminophn 10-325] Morphine Sulfate [Morphine Sulfate 15 mg PO BID@0700,1900 05/06/17 05/06/17 History ER] azaTHIOprine [Imuran] 75 mg PO QAM 05/06/17 05/06/17 History Allergies Allergy/AdvReac Type Severity Reaction Status Date / Time meperidine [From Demerol] Allergy Severe RASH Verified 05/06/17 11:25 naproxen Allergy Severe HIVES Verified 05/06/17 11:25 Tizanidine [From Zanaflex] Allergy Severe HIVES Verified 05/06/17 11:25 Cefaclor [From Ceclor] Allergy RASH Verified 05/06/17 11:25 vancomycin Allergy RASH Verified 05/06/17 11:25 Medical,Surgical,& Family Hx - Medical History Cardio: History of: Cardiac Dysrhythmia (skipped beats), CHF, Valvular Heart Disease Psychological: No history of: Anxiety Disorders, ADHD, Behavior Problems, Bipolar Disorder, Depression, Previous Suicide Attempt, Psychiatric/Substance Abuse Tx, Schizophrenia, Violent Behavior, Psychiatric Problems Neurology: History of: Migraine No history of: Seizures Endocrine: History of: Dyslipidemia Renal: History of: Renal Failure, Renal Problems Genitourinary: No history of: Bladder Problem Gastrointestinal: History of: GI Problems (Gastroporisis) Musculoskeletal: History of: Back/Neck Problems (Scoliosis) - Surgical History Cardiac Surgeries: Sugical HX of: Vascular Access Devices (Placement and removal for temporary dialysis.) Thoracic Surgeries: Surgical HX of;: Kidney (Renal Surgery) (Three transplanted kidneys), Organ Transplant Neurologic Surgeries: Patient denies: Neurologic Surgery HEENT Surgeries: Patient denies: Eye Surgery, Tonsilectomy & Adenoidectomy Reproductive Surgeries: Surgical HX of;: Hysterectomy Orthopedic Surgeries: Surgical HX of;: Orthopedic Surgery (Knee/Hip surgery 1988 ) - Family History Family History: Reports;: Family Heart Disease (father), Family Hypertension Denies;: Family Anesthesia Reaction, Family Cancer, Family Diabetes - Social History Smoking Status: Never smoker Frequency of Alcohol Use: None Type of Drug Use: None 12 point system: reviewed and no additional remarkable complaints except as stated - Cardiovascular Cardiovascular: Present: chest pain at rest Exam - Constitutional Vitals: Period Temp Pulse Resp BP Sys/Mosley Pulse Ox Last 24 Hr 96.8 F-98.5 F 68-92 16-19 113-143/62-102 94-100 General appearance: no acute distress - Head Head exam: Present: normal inspection - Eye Eye exam: Present: EOMI Pupils: Present: RADHA - ENT ENT exam: Present: normal exam Ear exam: Present: intact Mouth exam: Present: normal external inspection - Neck Neck exam: Present: normal inspection - Respiratory Respiratory exam: Present: clear to auscultation bilaterally, chest wall tenderness - Cardiovascular Cardiovascular exam: Present: RRR - GI/Abdominal GI/Abdominal exam: Present: normal bowel sounds - Extremities Exam Extremities exam: Present: normal inspection - Back Exam Back exam: Present: vertebral tenderness - Neurological Exam Neurological exam: Present: alert, oriented X3, normal gait Speech: Present: normal - Skin Skin exam: Present: normal color Results - Labs CBC & BMP: 05/07/17 01:54 05/07/17 01:54 Lab Results: I have reviewed the past 24 hour labs
[2017-05-07 07:21] LABS: Hemoglobin A1 (Alkaline) 97.6 % (96.5-98.5); Hemoglobin A2 (Alkaline) 2.4 % (1.5-3.5)
--- NOTE | 2017-05-07 07:57 | Nephrology Consult Note ---
History of Present Illness Chief complaint: Kidney transplant in a patient admitted for chest pain History of present illness: Ms. Parada is a 41 year old female who had her third kidney transplant in 2008 at [facility]. She was admitted yesterday for complaints of chest pain. The patient states she had severe chest pain on the left side of her chest and some associated pain in her back and shoulder on the left side as well. She also had some associated shortness of breath. She denies any fever or chills. The pain lasted for a good hour or more. She denies any recent strenuous activity. She states she has been having trouble lately with her GI system feeling full after she eats and also having some bad indigestion with certain foods. She states her gallbladder was evaluated a few years ago and was said to be unremarkable. The patient has a creatinine of 0.9 mg/dL on admission, she takes Prograf and Imuran and prednisone for her antirejection medications. 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 Skin - denies rash Neurology - denies stroke General - denies fever PE: General: in no acute distress Eyes: Pupils are round and reactive, conjunctivae are clear ENT: Nose is clear, O/P is benign Neck: Supple, no thyromegaly Lymphatics: No cervical, supraclavicular or axillary adenopathy Heart: Regular rate and rhythm, no edema Lungs: Clear to auscultation anteriorly, chest expansion symmetric Abdomen: Soft, normoactive bowel sounds, no hepatomegaly Musculoskeletal: No joint erythema or effusions or joint asymmetry Skin: Normal turgor, normal hydration, no rash Neuro/Psych: Alert and cooperative with fair insight Home Medications Medication Instructions Recorded Confirmed Type Tacrolimus Cap [Prograf Cap] 3 mg PO BID 01/22/15 05/06/17 History predniSONE TAB [PredniSONE] 10 mg PO QOTHER DAY 12/17/15 05/06/17 History Zolpidem Tartrate 10 mg PO BEDTIME 01/01/17 05/06/17 History Hydrocodone/Acetaminophen 1 tablet PO TID 05/06/17 05/06/17 History [Hydrocodon-Acetaminophn 10-325] Morphine Sulfate [Morphine Sulfate 15 mg PO BID@0700,1900 05/06/17 05/06/17 History ER] azaTHIOprine [Imuran] 75 mg PO QAM 05/06/17 05/06/17 History Allergies Allergy/AdvReac Type Severity Reaction Status Date / Time meperidine [From Demerol] Allergy Severe RASH Verified 05/06/17 11:25 naproxen Allergy Severe HIVES Verified 05/06/17 11:25 Tizanidine [From Zanaflex] Allergy Severe HIVES Verified 05/06/17 11:25 Cefaclor [From Ceclor] Allergy RASH Verified 05/06/17 11:25 vancomycin Allergy RASH Verified 05/06/17 11:25 Medical,Surgical,& Family Hx - Medical History Cardio: History of: Cardiac Dysrhythmia (skipped beats), CHF, Valvular Heart Disease Psychological: No history of: Anxiety Disorders, ADHD, Behavior Problems, Bipolar Disorder, Depression, Previous Suicide Attempt, Psychiatric/Substance Abuse Tx, Schizophrenia, Violent Behavior, Psychiatric Problems Neurology: History of: Migraine No history of: Seizures Endocrine: History of: Dyslipidemia Renal: History of: Renal Failure, Renal Problems Genitourinary: No history of: Bladder Problem Gastrointestinal: History of: GI Problems (Gastroporisis) Musculoskeletal: History of: Back/Neck Problems (Scoliosis) - Surgical History Cardiac Surgeries: Sugical HX of: Vascular Access Devices (Placement and removal for temporary dialysis.) Thoracic Surgeries: Surgical HX of;: Kidney (Renal Surgery) (Three transplanted kidneys), Organ Transplant Neurologic Surgeries: Patient denies: Neurologic Surgery HEENT Surgeries: Patient denies: Eye Surgery, Tonsilectomy & Adenoidectomy Reproductive Surgeries: Surgical HX of;: Hysterectomy Orthopedic Surgeries: Surgical HX of;: Orthopedic Surgery (Knee/Hip surgery 1988 ) - Family History Family History: Reports;: Family Heart Disease (father), Family Hypertension Denies;: Family Anesthesia Reaction, Family Cancer, Family Diabetes - Social History Smoking Status: Never smoker Frequency of Alcohol Use: None Type of Drug Use: None Exam - Vital Signs Vital signs: Period Temp Pulse Resp BP Sys/Mosley Pulse Ox Last 24 Hr 96.8 F-98.5 F 68-92 16-19 113-143/62-102 94-100 Results - Labs CBC & BMP: 05/07/17 01:54 05/07/17 01:54 Assessment and Plan (1) History of renal transplant Status: Chronic Assessment and plan: Patient's third transplanted kidney seems to be doing well on admission her creatinine was 0.9 mg/dL, will continue her present antirejection medications. 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
--- NOTE | 2017-05-07 08:22 | XRay Report ---
Portable chest May 07, 2017 at 632 hours Indication: Shortness of breath, cough Comparison: Previous day at 1600 hours Findings: Cardiomediastinal contours are normal. Lungs are clear bilaterally. No acute osseous abnormalities. Visualized upper abdomen demonstrates no acute pathology. Impression: Stable chest. No acute cardiopulmonary findings PROCEDURE INTERPRETED AT [facility] DEPARTMENT OF RADIOLOGY Final Report Signed by: Christofer Bustillos
[2017-05-07] MEDS: azaTHIOprine 50 MG TABLET PO SCH (08:39)
[2017-05-07] MEDS: TACROLIMUS 0.5 MG CAPSULE PO SCH ×2 (08:53→20:43)
[2017-05-07] MEDS ORDERED: PANTOPRAZOLE 40 MG TABLET PO SCH (09:00)
[2017-05-07] MEDS: SODIUM CHLORIDE 0.9% 1,000 ML IV SCH ×2 (10:11→23:13)
[2017-05-07] MEDS: MORPHINE 2 MG/1 ML SYRINGE IV PRN ×2 (11:43→22:24)
--- NOTE | 2017-05-07 14:05 | Gastrointestinal Consult Note ---
Assessment and Plan (1) Atypical chest pain Status: Acute Assessment and plan: I strongly suspect this patient may have a component of gastroparesis which is allowing acid and possibly bile acids to splash up into the esophagus producing both esophagitis and possibly a low level spasm. I believe that if her spasm up in the complete cause for the patient's pain she would have gotten a great deal better with nitroglycerin/Nitropaste. She does have reflux symptoms. The pain is been long lasting enough that this supports the concern over potential acid burn. We will perform upper endoscopy tomorrow in order to assess this completely. Risks of the procedure include but are not limited to: Bleeding, infection, perforation, cardiac and pulmonary compromise. The patient is concerned that her kidney function will be affected by pantoprazole, we did discuss the fact that this medication did not have a dose reduction associated with for renal dysfunction. Current Visit: Yes (2) Gastroparesis Status: Acute Assessment and plan: The patient had previously been evaluated [address] Rios and at [facility] in general with endoscopy to which we do not have access. I think it is certainly could be helpful to see if there is evidence of esophagitis versus just the previous gastritis and retained food seen on her last evaluation. The patient has not been on any medications for her gastroparesis and I think that we might be able to start Reglan at a low dose if she is concerned over toxicity with a higher dose. Starting at half the dose for patient who has a creatinine clearance lower than 40 ml/hr is recommended. Again, as yet we do not know if this medication is even required and we will not know until upper endoscopy is completed. I think that she would tolerate Reglan a great deal better than erythromycin although certainly the latter is complete metabolized in the liver. Current Visit: Yes (3) Anemia Status: Acute Assessment and plan: This patient is experiencing a decreased hematocrit to 30.2% which is down approximately a pint of blood to 2 points of blood. This may be due to renal/ bone marrow suppression with the antirejection drugs versus GI losses. Again this is another reason to perform upper endoscopy tomorrow. Current Visit: Yes (4) Epigastric pain Status: Acute Assessment and plan: I suspect strongly the patient may have ulcers or erosions might be adding to her blood loss and pain. Upper endoscopy to follow tomorrow. Patient was assessed potential for risks that include but are not limited to: Bleeding, infection, perforation, cardiac and pulmonary compromise. Current Visit: Yes History of Present Illness Chief complaint: Atypical chest pain, nausea without vomiting, possible IBS/ gastroparesis History of present illness: Ms. Parada is a 41 year old female who presents on 05/06/17 with an atypical chest pain involving the left side of her precordium low near the rib cage, as well as the left upper quadrant of her abdomen. She had been scoped by Dr. Rios of her [facility] approximately 3 years ago at that time has been having intractable nausea and vomiting and was told that she had symptoms of gastroparesis. She was concerned that the Reglan might produce damage to her transplant kidneys and so did not take any this medication, and for the same reason she is never really started any proton pump inhibitors although she does have reflux symptoms. Yesterday at about 5:00 in the morning the patient developed severe nausea and the left precordial pain that she described as being greater than 10 out of 10 in intensity along with sweats and some mild shortness of breath and nausea but without any vomiting. She did not have any melena. The pain was both sharp and cramping like a spasm. She elected to come in to the emergency room and has been found by Dr. Villa not to have any significant cardiac component to her pain. Incidentally the patient had tried nitroglycerin at least 3 doses as well as Nitropaste and this did not appear to be affecting the pain making spasm component less likely. She does have fairly significant reflux symptoms on an ongoing basis. She has never tried erythromycin. She does have some mild anemia with hematocrit of 30.2 and hemoglobin of 9.2 but does not have any low MCV, currently 87.0, with a normal platelet count. Patient's sedimentation rate was 59. She has a history of medullary cystic kidney disease and has undergone 3 kidney transplants, the latest of which was in 2008 at [facility]. She is very concerned about medication that might be affecting her kidneys and does follow-up with [facility] transplant team on a yearly basis in order to be reevaluated for her kidney function. She is concerned that with excessive nausea or vomiting that she might not be able to tolerate her anti-rejection drugs (Prograf and Imuran) as well as prednisone and this may send her into a worsening spiral with vomiting and potential graft rejection. Her symptoms seem very characteristic of esophagitis and possibly ongoing gastroparesis. I checked with pharmacy who agreed that Reglan in low doses might be acceptable as this is metabolized mostly by the liver although in dialysis patients the dose needs to be cut in half (below creatinine clearance of 40 mL/h). She states that she does have some diarrhea alternating with constipation and IBS-like fashion. She is mildly lactose intolerant. She has had previous gallbladder evaluation this was found to be unremarkable in the past. Her pain at this time is on the wrong side for that. The patient has been eating fairly carefully in order to lose some weight. Home Medications Medication Instructions Recorded Confirmed Type Tacrolimus Cap [Prograf Cap] 3 mg PO BID 01/22/15 05/06/17 History predniSONE TAB [PredniSONE] 10 mg PO QOTHER DAY 12/17/15 05/06/17 History Zolpidem Tartrate 10 mg PO BEDTIME 01/01/17 05/06/17 History Hydrocodone/Acetaminophen 1 tablet PO TID 05/06/17 05/06/17 History [Hydrocodon-Acetaminophn 10-325] Morphine Sulfate [Morphine Sulfate 15 mg PO BID@0700,1900 05/06/17 05/06/17 History ER] azaTHIOprine [Imuran] 75 mg PO QAM 05/06/17 05/06/17 History Allergies Allergy/AdvReac Type Severity Reaction Status Date / Time meperidine [From Demerol] Allergy Severe RASH Verified 05/06/17 11:25 naproxen Allergy Severe HIVES Verified 05/06/17 11:25 Tizanidine [From Zanaflex] Allergy Severe HIVES Verified 05/06/17 11:25 Cefaclor [From Ceclor] Allergy RASH Verified 05/06/17 11:25 vancomycin Allergy RASH Verified 05/06/17 11:25 Medical,Surgical,& Family Hx - Medical History Cardio: History of: Cardiac Dysrhythmia (skipped beats), CHF, Valvular Heart Disease Psychological: No history of: Anxiety Disorders, ADHD, Behavior Problems, Bipolar Disorder, Depression, Previous Suicide Attempt, Psychiatric/Substance Abuse Tx, Schizophrenia, Violent Behavior, Psychiatric Problems Neurology: History of: Migraine No history of: Seizures Endocrine: History of: Dyslipidemia Renal: History of: Renal Failure, Renal Problems Genitourinary: No history of: Bladder Problem Gastrointestinal: History of: GI Problems (Gastroporisis) Musculoskeletal: History of: Back/Neck Problems (Scoliosis) - Surgical History Cardiac Surgeries: Sugical HX of: Vascular Access Devices (Placement and removal for temporary dialysis.) Thoracic Surgeries: Surgical HX of;: Kidney (Renal Surgery) (Three transplanted kidneys), Organ Transplant Neurologic Surgeries: Patient denies: Neurologic Surgery HEENT Surgeries: Patient denies: Eye Surgery, Tonsilectomy & Adenoidectomy Reproductive Surgeries: Surgical HX of;: Hysterectomy Orthopedic Surgeries: Surgical HX of;: Orthopedic Surgery (Knee/Hip surgery 1988 ) - Family History Family History: Reports;: Family Heart Disease (father), Family Hypertension Denies;: Family Anesthesia Reaction, Family Cancer, Family Diabetes - Social History Smoking Status: Never smoker Frequency of Alcohol Use: None Type of Drug Use: None Review of systems: Constitutional: Denies fever, chills, but positive for recent nausea, without vomiting Eyes: Denies dry eyes, and scleral icterus HENT: She does have occasional headaches Cardiovascular: The patient admits to recent acute chest pain but no claudication Respiratory: Denies shortness of breath, wheezing, and difficulty breathing, denies cough Gastrointestinal: As noted in the HPI Genitourinary: Denies dysuria and hematuria Neurologic: Denies vision loss, and loss of sensation Musculoskeletal: The patient does admit to some joint swelling, joint stiffness, and muscular weakness Psychiatric: She denies depression and rosanna symptoms Heme-Lymph: She does admit to some easy bruising, but no lymph node enlargement or tenderness, night sweats, excessive bleeding Allergies-immunologic: Denies pruritus and rhinorrhea Exam - Constitutional Vitals: Period Temp Pulse Resp BP Sys/Mosley Pulse Ox Last 24 Hr 96.6 F-98.5 F 68-88 16-19 113-143/62-88 94-100 General appearance: mild distress Exam: Constitutional: Well-developed, well-nourished, cushingoid appearing white female, alert, and in minimal acute distress Head and face: Head: Normocephalic atraumatic Eyes: Conjunctiva without injection, no gross scleral icterus, pupils equal and round bilaterally Ears: Intact to conversation in both ears Nose: External appearance is normal, nares patent Mouth: Oral mucous membranes moist without erythema dentition noted to be without erosion Neck: Normal appearance, no masses or tenderness, trachea midline Thyroid: Gland midline and appropriate size for age Respiratory: Normal respiratory effort, clear to auscultation without wheezes, rhonchi or rales Cardiovascular: Regular rate and rhythm, normal S1, S2, the exam is without rubs, murmurs or gallops. Gastrointestinal: Patient is moderately tender in the left upper quadrant greater than epigastric region to deep palpation, normal active bowel sounds, tone normal without rigidity or guarding, no masses present, no hepatomegaly, no spleen tip felt. There is some very deep scars due to the patient's previous exploratory surgery for peritonitis by Dr. Nguyễn many years ago and her 3 kidney transplants. No rectal exam obtained. Lymphatic: Neck without adenopathy, axilla without lymphadenopathy present Musculoskeletal: Right and left lower extremities with trace evidence of edema Skin and subcutaneous tissue: No rashes or ulcerations noted, normal skin turgor, digits and nails without clubbing/cyanosis/deformities. Neurologic: The patient is grossly oriented to person place and time, cranial nerves show tongue movements are normal with normal tongue extrusion midline, light touch sensation is intact. Psychiatric: No hallucinations or delusions are present, does not appear depressed Results - Labs CBC & BMP: 05/07/17 01:54 05/07/17 01:54
--- NOTE | 2017-05-07 20:16 | ECHO Report ---
Astrid Parada Exam Date: 05/07/2017 08:28 Referring Physician: Technologist: Janine Barajas Age: 41 Ht (in): 59 Wt (lb): 165 Gender: F Exam Location: [facility] Echo Indications: anemia, Hx. renal transpant, chest pain, chronic pain BP: 143 / 77 HR: 69 Rhythm: Sinus Technical Quality: Fair IMPRESSIONS Normal LV systolic function, ejection fraction 55%. Grade 1/4 diastolic dysfunction consistent with impaired relaxation. Mild mitral, aortic regurgitation. Moderate tricuspid regurgitation. MEASUREMENTS (Male / Female) Normal Values 2D ECHO LV Diastolic Diameter PLAX 3.6 cm 4.2 - 5.9 / 3.9 - 5.3 cm LV Systolic Diameter PLAX 1.6 cm LV Fractional Shortening PLAX 55.5 % IVS Diastolic Thickness 1.0 cm 0.6 - 1.0 / 0.6 - 0.9 cm LVPW Diastolic Thickness 1.1 cm 0.6 - 1.0 / 0.6 - 0.9 cm RV Internal Dim ED PLAX 2.9 cm Aortic Root Diameter 3.0 cm LA Systolic Diameter LX 3.1 cm 3.0 - 4.0 / 2.7 - 3.8 cm DOPPLER TR Peak Velocity 282.0 cm/s TR Peak Gradient 31.8 mmHg FINDINGS Left Ventricle Normal left ventricular cavity size. Left ventricular ejection fraction is estimated at 55%. There is grade 1/4 diastolic dysfunction consistent with impaired relaxation. Right Ventricle Normal right ventricular size. Right Atrium Normal right atrial size. Left Atrium Normal left atrial size. Mitral Valve Mildly thickened mitral valve with trace mitral regurgitation. Aortic Valve Trileaflet aortic valve. Trace to mild aortic valve regurgitation. Tricuspid Valve Morphologically normal tricuspid valve. Moderate tricuspid valve regurgitation. Tricuspid regurgitation velocities suggest a PAP of 31.8 mmHg + RAP. Pulmonic Valve Morphologically normal pulmonic valve. Pericardium No pericardial effusion. Aorta Normal size aortic root and proximal ascending aorta. Nalini Villa MD (Electronically Signed) Final Date: 07 May 2017 20:14
[2017-05-07] MEDS: ZALEPLON 5 MG CAPSULE PO SCH (20:43)
[2017-05-07] MEDS: PANTOPRAZOLE 40 MG TABLET PO SCH (20:44)
--- NOTE | 2017-05-07 21:54 | Cardiology Progress Note ---
Paulo Witt Lesley, LIZ, am scribing for, and in the presence of, Nalini Villa MD 21:53. Assessment and Plan - Time spent with patient Time spent with patient: Greater than 30 minutes (Record review, assessment, and documentation) (1) Anemia Status: Acute Assessment and plan: SEE PLAN LISTED BELOW Current Visit: Yes (2) History of renal transplant Status: Chronic Assessment and plan: SEE PLAN LISTED BELOW Current Visit: Yes (3) Chest pain Status: Acute Assessment and plan: SEE PLAN LISTED BELOW Current Visit: Yes (4) Chronic pain Status: Acute Assessment and plan: SEE PLAN LISTED BELOW Current Visit: Yes Qualifiers: Chronic pain type: chronic pain syndrome Qualified Code(s): G89.4 - Chronic pain syndrome (5) Epigastric pain Status: Acute Assessment and plan: SEE PLAN LISTED BELOW Current Visit: Yes (6) Dyslipidemia Status: Acute Assessment and plan: SEE PLAN OF CARE LISTED BELOW Current Visit: Yes Cardiology - PN: Subj Interval history: INVESTMENT ACCOUNTING CLERK: Dr. Villa Ms. Parada is a 41 year old female, who presents to the ER today with complaints of chest pain. She noted that she also felt pain in the left scapular region, she describes the pain is if someone punched her in the back. She rates the pain as an 8 out of 10 on a numeric pain scale. It began in her epigastrium and lower chest. She reports she was awakened at 5 AM this morning with this pain. She reports she took Pepto-Bismol with no improvement in her symptoms, she did take her blood pressure and noticed that it was elevated. She states she called EMS to be transported to the emergency room. She states she was given nitroglycerin as well as aspirin by EMS, she notes nitroglycerin did not relieve her pain. She denied any alleviating factors of the pain, and noted that her pain did worsen with exertion. Her GI cocktail may have improved her symptoms. She also noted cold sweats and some shortness of breath with exertion during the time she was having this pain. She reports when she got to the ER she was given something for her stomach, and this seemed to help her pain. She has noted for the last 2-3 days she has felt fatigued. She denies heart palpitations, edema in the extremities, nausea, vomiting. 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 Past surgical history includes 3 kidney transplants, the last being in 2008, HD shunt placement and removal, hip surgery, knee surgery, and hysterectomy. She denies tobacco use, alcohol use, or illicit drug use. Cardiac risk factors include sedentary life and positive family history of MO in her father. She is managed by the [facility] transplant team and sees them once a year for follow-up. The patient was seen in the ER today lying in bed. She appeared comfortable without distress. She denies ongoing chest pain or shortness of breath, however she has some epigastric tenderness that is reproducible to palpation. She also has some tenderness to the left scapula and paraspinal muscles to palpation. Blood pressure currently is 116/74, heart rate 78, oxygen saturation 100% on 2 L nasal cannula. The patient is afebrile. Labs reviewed: Hemoglobin 10 and hematocrit 33, INR 0.9, sodium 142, potassium 5.3, BUN 16, creatinine 0.9 glucose 88, calcium 9.3, magnesium 2.3, AST and ALT unremarkable , bilirubin unremarkable, BNP 101, troponin I negative, urinalysis negative. EKG reveals sinus rhythm. Chest x-ray reviewed and lungs are clear bilaterally S-type scoliosis of the thoracolumbar spine is noted. Abdominal x-ray reveals chronic deformity of the left femoral head with changes to the acetabulum, status post surgical changes to the left lower abdomen and pelvis, and compound scoliosis noted. 05/07/17: The patient continues to complain of pain in the substernal and epigastric region although overall her sx are improving. She notes that she continues to feel full, long after eating. She states she feels a sense of heaviness in the epigastric region after eating, as if her food is not digesting. She states she has not had a bowel movement. Vital signs have remained stable. Continue with telemetry monitoring with sinus rhythm noted. Cardiac biomarkers have remained negative. Lipid panel and anemia panel reviewed. No changes on chest x-ray this morning. Echocardiogram pending. We appreciate nephrology and pain management assistance. GI consult pending. The patient revealed today that she had been seen by Dr. Rios at [facility] for a previous hospital admission in which she was diagnosed with GI bleed. ASSESSMENT/PLAN: 1. ATYPICAL CHEST PAIN - reproducible, currently chest pain free, continue to monitor EKGs and cardiac biomarkers. Cardiac biomarkers are negative despite ongoing symptoms. Given her underlying renal transplantation, we would need to proceed very cautiously if we were going to consider cardiac catheterization. Currently the objective data would point away from this approach. Echocardiogram pending. 2. EPIGASTRIC PAIN - reproducible, improved with GI cocktail. Started Protonix. Will have GI evaluate her because of her anemia and reproducible epigastric pain. 3. ANEMIA - pt. denies history of anemia, but admits history of GI bleed. Hemoccult stool, and consult GI. 4. STATUS POST RENAL TRANSPLANT- last 2008 due to MCKD, creatinine 0.9, monitor closely. 5. CHRONIC PAIN - continue current plan of care, Dr. Petit. We will see if he can assist with a reproducible musculoskeletal chest pain. 6. DYSLIPIDEMIA -fasted lipid panel reviewed, will consult dietary, recommend lifestyle changes. Exam (Progress Note) - Constitutional Vitals: Period Temp Pulse Resp BP Sys/Mosley Pulse Ox Last 24 Hr 96.6 F-98.5 F 68-88 16-19 113-143/62-99 94-100 Exam: General: Appears well with no apparent distress. Pleasant and cooperative. Appears comfortable. HEENT: PERRL, normocephalic, atraumatic. Mucous membranes moist. No jaundice noted. Conjunctiva moist and clear, sclerae anicteric. Neck: No JVD/HJR, no thyromegaly or lymphadenopathy noted. No carotid bruit appreciated. Cardiac: Regular rate and rhythm. No murmur rub or gallop. PMI is nondisplaced. Lungs: Clear to auscultation without accessory muscle use to assist the respiratory pattern. No oxygen required. Tenderness to palpation and substernal chest area. Abdomen: Soft, bowel sounds normoactive. Tenderness to palpation in epigastric region, but nondistended. No abdominal bruit or thrill noted. No masses noted. Musculoskeletal: No fluid collection. Decreased range of motion is noted. Extremities: No clubbing, cyanosis noted. No edema noted. Upper extremity pulses 2+. Lower extremity pulses 2+. Capillary refill less than 3 seconds. Skin: No unusual lesions or rashes. No skin breakdown appreciated. Neuro: Awake, alert and oriented 3. Moves all extremities well without hemiparesis or paralysis. No essential tremor is appreciated. Result/EKG - Labs CBC & BMP: 05/07/17 01:54 05/07/17 01:54 Lab Results: I have reviewed the past 24 hour labs Labs: Laboratory Results - last 24 hr 05/06/17 05/06/17 05/06/17 11:30 11:30 11:30 WBC RBC Hgb Hct MCV MCH MCHC RDW Plt Count MPV Neut % (Auto) Lymph % (Auto) [place] % (Auto) Eos % (Auto) Baso % (Auto) Neut # (Auto) Lymph # (Auto) [place] # (Auto) Eos # (Auto) Baso # (Auto) Immature Gran % Nucleated RBC % Immature Gran # Nucleated RBCs # Anemia Panel Interp Immature Plt Fraction ESR Westergren Absolute Retic Percent Retic Retic Hgb Equivalent Hemoglobin A1 Hemoglobin A2 Hemoglobin C Hemoglobin D Hemoglobin E Hemoglobin F (ELP) Hemoglobin G Hemoglobin S Hgb ELP Interp INR 0.9 PT Patient/Control Mix 9.9 Sodium 142 Potassium 5.3 H Chloride 110 H Carbon Dioxide 27 Anion Gap 10.3 BUN 16 Creatinine 0.90 GFR Calculation 78 BUN/Creatinine Ratio 17.00 Glucose 88 Calculated Osmolality 282.1 Calcium 9.3 Magnesium 2.3 Ferritin Total Bilirubin < 0.39 AST 15 ALT 15 Alkaline Phosphatase 98 Total Creatine Kinase CK-MB (CK-2) Troponin I B-Natriuretic Peptide 101 H Total Protein 6.3 L Albumin 3.3 L Globulin 3.0 Albumin/Globulin Ratio 1.1 Triglycerides Cholesterol LDL Cholesterol VLDL Cholesterol HDL Cholesterol Heart Disease Risk Ratio Amylase 60 Lipase Vitamin B12 Folate Urine Color Urine Appearance Urine pH Ur Specific [place] Urine Protein Urine Glucose (UA) Urine Ketones Urine Blood Urine Nitrate Urine Bilirubin Urine Urobilinogen Urine Leukocytes Urine RBC Urine WBC Ur Squamous Epith Cells Ur Culture Indicated? LANI (IgG-AHG) LANI, Polyspecific 05/06/17 05/06/17 05/06/17 11:30 11:30 11:30 WBC 7.9 RBC 3.77 L Hgb 10.1 L Hct 33.3 L MCV 88.3 MCH 27 MCHC 30.3 L RDW 15.5 Plt Count 405 H MPV 9.9 Neut % (Auto) 63.8 Lymph % (Auto) 24.7 [place] % (Auto) 7.0 Eos % (Auto) 3.2 Baso % (Auto) 0.8 Neut # (Auto) 5.0 Lymph # (Auto) 1.9 [place] # (Auto) 0.6 Eos # (Auto) 0.3 Baso # (Auto) 0.1 Immature Gran % 0.5 Nucleated RBC % 0.0 Immature Gran # 0.04 Nucleated RBCs # 0.00 Anemia Panel Interp Immature Plt Fraction 0.0 ESR Westergren Absolute Retic Percent Retic Retic Hgb Equivalent Hemoglobin A1 Hemoglobin A2 Hemoglobin C Hemoglobin D Hemoglobin E Hemoglobin F (ELP) Hemoglobin G Hemoglobin S Hgb ELP Interp INR PT Patient/Control Mix Sodium Potassium Chloride Carbon Dioxide Anion Gap BUN Creatinine GFR Calculation BUN/Creatinine Ratio Glucose Calculated Osmolality Calcium Magnesium Ferritin Total Bilirubin AST ALT Alkaline Phosphatase Total Creatine Kinase CK-MB (CK-2) Troponin I < 0.015 B-Natriuretic Peptide Total Protein Albumin Globulin Albumin/Globulin Ratio Triglycerides Cholesterol LDL Cholesterol VLDL Cholesterol HDL Cholesterol Heart Disease Risk Ratio Amylase Lipase 98.0 Vitamin B12 Folate Urine Color Urine Appearance Urine pH Ur Specific [place] Urine Protein Urine Glucose (UA) Urine Ketones Urine Blood Urine Nitrate Urine Bilirubin Urine Urobilinogen Urine Leukocytes Urine RBC Urine WBC Ur Squamous Epith Cells Ur Culture Indicated? LANI (IgG-AHG) LANI, Polyspecific 05/06/17 05/06/17 05/06/17 11:48 15:15 16:51 WBC 8.7 RBC 3.43 L Hgb 9.2 L Hct 30.3 L MCV 88.3 MCH 27 MCHC 30.4 L RDW 15.4 Plt Count 376 MPV 9.6 Neut % (Auto) 63.9 Lymph % (Auto) 25.2 [place] % (Auto) 7.2 Eos % (Auto) 2.5 Baso % (Auto) 0.7 Neut # (Auto) 5.6 Lymph # (Auto) 2.2 [place] # (Auto) 0.6 Eos # (Auto) 0.2 Baso # (Auto) 0.1 Immature Gran % 0.5 Nucleated RBC % 0.0 Immature Gran # 0.04 Nucleated RBCs # 0.00 Anemia Panel Interp See comment Immature Plt Fraction 0.0 ESR Westergren 59 H Absolute Retic 0.0 Percent Retic 1.3 Retic Hgb Equivalent 23.8 L Hemoglobin A1 Hemoglobin A2 Hemoglobin C Hemoglobin D Hemoglobin E Hemoglobin F (ELP) Hemoglobin G Hemoglobin S Hgb ELP Interp INR PT Patient/Control Mix Sodium Potassium Chloride Carbon Dioxide Anion Gap BUN Creatinine GFR Calculation BUN/Creatinine Ratio Glucose Calculated Osmolality Calcium Magnesium Ferritin Total Bilirubin AST ALT Alkaline Phosphatase Total Creatine Kinase CK-MB (CK-2) Troponin I < 0.015 B-Natriuretic Peptide Total Protein Albumin Globulin Albumin/Globulin Ratio Triglycerides Cholesterol LDL Cholesterol VLDL Cholesterol HDL Cholesterol Heart Disease Risk Ratio Amylase Lipase Vitamin B12 Folate Urine Color Yellow Urine Appearance Clear Urine pH 5.0 Ur Specific [place] 1.024 Urine Protein Negative Urine Glucose (UA) Negative Urine Ketones Negative Urine Blood Negative Urine Nitrate Negative Urine Bilirubin Negative Urine Urobilinogen < 2.0 H Urine Leukocytes Negative Urine RBC 1 Urine WBC 2 Ur Squamous Epith Cells Occasional Ur Culture Indicated? Not indicated LANI (IgG-AHG) LANI, Polyspecific 05/06/17 05/06/17 05/06/17 16:51 16:51 16:51 WBC RBC Hgb Hct MCV MCH MCHC RDW Plt Count MPV Neut % (Auto) Lymph % (Auto) [place] % (Auto) Eos % (Auto) Baso % (Auto) Neut # (Auto) Lymph # (Auto) [place] # (Auto) Eos # (Auto) Baso # (Auto) Immature Gran % Nucleated RBC % Immature Gran # Nucleated RBCs # Anemia Panel Interp Immature Plt Fraction ESR Westergren Absolute Retic Percent Retic Retic Hgb Equivalent Hemoglobin A1 97.6 Hemoglobin A2 2.4 Hemoglobin C Not Reportable Hemoglobin D Not Reportable Hemoglobin E Not Reportable Hemoglobin F (ELP) Not Reportable Hemoglobin G Not Reportable Hemoglobin S Not Reportable Hgb ELP Interp See comment INR PT Patient/Control Mix Sodium Potassium Chloride Carbon Dioxide Anion Gap BUN Creatinine GFR Calculation BUN/Creatinine Ratio Glucose Calculated Osmolality Calcium Magnesium Ferritin 8.0 Total Bilirubin AST ALT Alkaline Phosphatase Total Creatine Kinase CK-MB (CK-2) Troponin I B-Natriuretic Peptide Total Protein Albumin Globulin Albumin/Globulin Ratio Triglycerides Cholesterol LDL Cholesterol VLDL Cholesterol HDL Cholesterol Heart Disease Risk Ratio Amylase Lipase Vitamin B12 546 Folate 9.6 Urine Color Urine Appearance Urine pH Ur Specific [place] Urine Protein Urine Glucose (UA) Urine Ketones Urine Blood Urine Nitrate Urine Bilirubin Urine Urobilinogen Urine Leukocytes Urine RBC Urine WBC Ur Squamous Epith Cells Ur Culture Indicated? LANI (IgG-AHG) Negative LANI, Polyspecific Negative 05/06/17 05/06/17 05/07/17 18:16 23:31 01:54 WBC 6.3 RBC 3.47 L Hgb 9.2 L Hct 30.2 L MCV 87.0 MCH 27 MCHC 30.5 L RDW 15.4 Plt Count 373 MPV 9.8 Neut % (Auto) 52.7 Lymph % (Auto) 35.1 [place] % (Auto) 8.1 Eos % (Auto) 3.0 Baso % (Auto) 0.9 H Neut # (Auto) 3.3 Lymph # (Auto) 2.2 [place] # (Auto) 0.5 Eos # (Auto) 0.2 Baso # (Auto) 0.1 Immature Gran % 0.2 Nucleated RBC % 0.0 Immature Gran # 0.01 Nucleated RBCs # 0.00 Anemia Panel Interp Immature Plt Fraction 0.0 ESR Westergren Absolute Retic Percent Retic Retic Hgb Equivalent Hemoglobin A1 Hemoglobin A2 Hemoglobin C Hemoglobin D Hemoglobin E Hemoglobin F (ELP) Hemoglobin G Hemoglobin S Hgb ELP Interp INR PT Patient/Control Mix Sodium Potassium Chloride Carbon Dioxide Anion Gap BUN Creatinine GFR Calculation BUN/Creatinine Ratio Glucose Calculated Osmolality Calcium Magnesium Ferritin Total Bilirubin AST ALT Alkaline Phosphatase Total Creatine Kinase 27 CK-MB (CK-2) < 1.0 Troponin I < 0.015 < 0.015 B-Natriuretic Peptide Total Protein Albumin Globulin Albumin/Globulin Ratio Triglycerides Cholesterol LDL Cholesterol VLDL Cholesterol HDL Cholesterol Heart Disease Risk Ratio Amylase Lipase Vitamin B12 Folate Urine Color Urine Appearance Urine pH Ur Specific [place] Urine Protein Urine Glucose (UA) Urine Ketones Urine Blood Urine Nitrate Urine Bilirubin Urine Urobilinogen Urine Leukocytes Urine RBC Urine WBC Ur Squamous Epith Cells Ur Culture Indicated? LANI (IgG-AHG) LANI, Polyspecific 05/07/17 05/07/17 05/07/17 01:54 01:54 01:54 WBC RBC Hgb Hct MCV MCH MCHC RDW Plt Count MPV Neut % (Auto) Lymph % (Auto) [place] % (Auto) Eos % (Auto) Baso % (Auto) Neut # (Auto) Lymph # (Auto) [place] # (Auto) Eos # (Auto) Baso # (Auto) Immature Gran % Nucleated RBC % Immature Gran # Nucleated RBCs # Anemia Panel Interp Immature Plt Fraction ESR Westergren Absolute Retic Percent Retic Retic Hgb Equivalent Hemoglobin A1 Hemoglobin A2 Hemoglobin C Hemoglobin D Hemoglobin E Hemoglobin F (ELP) Hemoglobin G Hemoglobin S Hgb ELP Interp INR PT Patient/Control Mix Sodium 140 Potassium 4.8 Chloride 107 Carbon Dioxide 30 Anion Gap 7.8 BUN 17 Creatinine 1.10 H GFR Calculation 61 BUN/Creatinine Ratio 15.00 Glucose 87 Calculated Osmolality 279.4 Calcium 8.7 Magnesium 2.3 Ferritin Total Bilirubin < 0.39 AST 11 ALT 13 Alkaline Phosphatase 93 Total Creatine Kinase 27 CK-MB (CK-2) < 1.0 Troponin I < 0.015 B-Natriuretic Peptide 61 Total Protein 5.6 L Albumin 2.9 L Globulin 2.7 Albumin/Globulin Ratio 1.0 L Triglycerides 164 H Cholesterol 167 LDL Cholesterol 84.0 VLDL Cholesterol 32.8 HDL Cholesterol 46 Heart Disease Risk Ratio 3.63 Amylase Lipase Vitamin B12 Folate Urine Color Urine Appearance Urine pH Ur Specific [place] Urine Protein Urine Glucose (UA) Urine Ketones Urine Blood Urine Nitrate Urine Bilirubin Urine Urobilinogen Urine Leukocytes Urine RBC Urine WBC Ur Squamous Epith Cells Ur Culture Indicated? LANI (IgG-AHG) LANI, Polyspecific 05/07/17 04:22 WBC RBC Hgb Hct MCV MCH MCHC RDW Plt Count MPV Neut % (Auto) Lymph % (Auto) [place] % (Auto) Eos % (Auto) Baso % (Auto) Neut # (Auto) Lymph # (Auto) [place] # (Auto) Eos # (Auto) Baso # (Auto) Immature Gran % Nucleated RBC % Immature Gran # Nucleated RBCs # Anemia Panel Interp Immature Plt Fraction ESR Westergren Absolute Retic Percent Retic Retic Hgb Equivalent Hemoglobin A1 Hemoglobin A2 Hemoglobin C Hemoglobin D Hemoglobin E Hemoglobin F (ELP) Hemoglobin G Hemoglobin S Hgb ELP Interp INR PT Patient/Control Mix Sodium Potassium Chloride Carbon Dioxide Anion Gap BUN Creatinine GFR Calculation BUN/Creatinine Ratio Glucose Calculated Osmolality Calcium Magnesium Ferritin Total Bilirubin AST ALT Alkaline Phosphatase Total Creatine Kinase 23 L CK-MB (CK-2) < 1.0 Troponin I < 0.015 B-Natriuretic Peptide Total Protein Albumin Globulin Albumin/Globulin Ratio Triglycerides Cholesterol LDL Cholesterol VLDL Cholesterol HDL Cholesterol Heart Disease Risk Ratio Amylase Lipase Vitamin B12 Folate Urine Color Urine Appearance Urine pH Ur Specific [place] Urine Protein Urine Glucose (UA) Urine Ketones Urine Blood Urine Nitrate Urine Bilirubin Urine Urobilinogen Urine Leukocytes Urine RBC Urine WBC Ur Squamous Epith Cells Ur Culture Indicated? LANI (IgG-AHG) LANI, Polyspecific - Diagnostic Findings Procedure: Chest x-ray: report reviewed by me - EKG EKG results: interpreted by oh, sinus rhythm I, Nalini Villa MD, personally performed the services described in this documentation, ascribed by Perlita Bates NP in my presence, and it is both accurate and complete .
[2017-05-08] MEDS: SODIUM CHLORIDE 0.9% 1,000 ML IV SCH (01:28)
[2017-05-08 05:54] LABS: Basophils # 0.1 10*3/uL (0.0-0.2); Basophils % 1.1 % (0.0-0.8); Eosinophils # 0.3 10*3/uL (0.0-0.87); Eosinophils % 4.6 % (0.00-10.9); Hematocrit 32.4 VOL% (35.7-47.0); Hemoglobin 9.5 GM/DL (12.0-16.0); Immature Granulocytes % 0.9 %; Immature Granulocytes Absolute 0.05 #; Lymphocytes # 2.7 10*3/uL (1.4-4.0); Lymphocytes % 48.6 % (21.3-54.2); Mean Corpuscular HGB Conc 29.3 GM/DL (32-36); Mean Corpuscular Hemoglobin 27 PG (27-34); Mean Corpuscular Volume 90.3 FL (87-102); Mean Platelet Volume 10.5 FL (9.6-12.0); Monocytes # 0.5 10*3/uL (0.11-0.8); Neutrophils % 35.8 % (38.7-73.9); Platelet Count 283 T/CUMM (130-400); Red Blood Count 3.59 MC/CUMM (3.8-5.5); Red Cell Distribution Width 15.3 % (9.3-17.3); White Blood Count 5.5 T/CUMM (4-12)
[2017-05-08] MEDS: MORPHINE ER 15 MG TABLET PO SCH ×2 (06:00→18:47)
[2017-05-08 06:17] LABS: Eosinophils 4 % (0-10); Lymphocytes 52 % (20-55); Segmented Neutrophils 39 % (50-85); Total Cells Counted 100
[2017-05-08 06:18] LABS: Giant Platelets Few; Ovalocytes Slight; Platelet Estimate Adequate
--- NOTE | 2017-05-08 06:20 | Pain Management Progress Note ---
Assessment and Plan (1) Chronic pain Status: Acute Assessment and plan: This seems like mainly musculoskeletal chest pain and gastroenterology workup will be done also. Continue current medications for pain 05/08 continue current medications as an inpatient and then follow-up as an outpatient in pain clinic as scheduled Current Visit: Yes Qualifiers: Chronic pain type: chronic pain syndrome Qualified Code(s): G89.4 - Chronic pain syndrome Pain - Subjective Interval history: Patient reports feeling somewhat better but the epigastric pain. Patient is scheduled for upper endoscopy this morning. Hopefully that will be benign and patient can be discharged home soon.. Patient is scheduled to keep regular appointment with me in pain clinic and has enough pain medications to than Exam - Constitutional Vitals: Period Temp Pulse Resp BP Sys/Mosley Pulse Ox Last 24 Hr 96.6 F-98.4 F 69-84 18-20 119-146/68-96 94-100 General appearance: normal weight - Head Head exam: Present: normal inspection - Eye Eye exam: Present: EOMI Pupils: Present: RADHA - ENT ENT exam: Present: normal exam Ear exam: Present: intact Mouth exam: Present: normal external inspection - Neck Neck exam: Present: normal inspection - Respiratory Respiratory exam: Present: clear to auscultation bilaterally - Cardiovascular Cardiovascular exam: Present: RRR - GI/Abdominal GI/Abdominal exam: Present: tenderness - Extremities Exam Extremities exam: Present: normal inspection - Back Exam Back exam: Present: vertebral tenderness - Neurological Exam Neurological exam: Present: alert, oriented X3 - Skin Skin exam: Present: normal color Results - Labs CBC & BMP: 05/08/17 05:29 05/07/17 01:54 Lab Results: I have reviewed the past 24 hour labs
[2017-05-08 08:15] LABS: Calcium 9.3 MG/DL (8.5-10.1); Magnesium 2.1 MG/DL (1.8-2.4); Osmolality,Calculated 274.7 MOS/KG (273-304); Potassium 4.8 MMOL/L (3.5-5.1)
[2017-05-08] MEDS ORDERED: predniSONE 5 MG TABLET PO SCH (09:00)
--- NOTE | 2017-05-08 09:36 | Event Note ---
Patient gone for EGD. Cardiology will round back on patient later today per
--- NOTE | 2017-05-08 10:48 | Operative Note ---
Date of procedure: 05/08/17 Pre-op diagnosis: Bloating, history of gastroparesis, atypical chest pain, kidney transplant Post-op diagnosis: other (LA class C erosive esophagitis 8 cm likely a source of blood loss, 2 cm hiatal hernia, retained food consistent with gastroparesis, linear gastritis, duodenitis with duodenal ulcer which appeared to be quite deep and can likely the source for some of the patient's anemia as well.) Procedure: PROCEDURE: Esophagogastroduodenoscopy (EGD) with cold biopsy for pathology REFERRING PHYSICIAN: Nalini Villa MD INDICATIONS: Gastroparesis, bloating, atypical chest pain, no dysphagia in a patient who has previously been diagnosed with gastroparesis and has kidney transplants status post 3 of these. She has never undergone treatment for her gastroparesis (by Dr. Rios at [place]) up to this point due to concerns about affecting the kidney transplants. The prior H&P was reviewed and interrim changes are as noted: ENDOSCOPIST: Cristian Bustillo MD ENDOSCOPE: Olympus Video 100 System upper endoscope ASA CLASS: 3 EXAM: CV: regular rate and rhythm respiratory: Clear without wheezes abdominal: active bowel sounds MEDICATION: Per nursing anesthesia protocol, see their notes PROCEDURE: After discussion of the potential risks and benefits of upper endoscopy, the informed consent was obtained. The patient was then placed in the left lateral decubitus position where sedation was achieved as noted above. Esophageal intubation was performed without difficulty, and the endoscope was advanced through the esophagus, stomach and duodenum. A slow withdrawal was then performed with retroflexion in the stomach for careful inspection of the incisura angularis, fundus and cardia. The scope was then returned to a neutral position and withdrawn through the esophagus. The patient tolerated the procedure well and without complication. BIOPSIES: Gastric antrum/body PHOTOGRAPHS: Obtained FINDINGS: Hypopharynx and Larynx: Normal Esohagoscopy Upper and middle thirds: Normal Lower third 8 cm of esophagitis, LA class C Esophogastric junctions: LA class C erosive esophagitis, no gross evidence of High's Gastroscopy: Cardia/Fundus: Moderate amount of retained solid food in the stomach consistent with gastroparesis, and 2 cm hiatal hernia Body: Mild patchy and linear gastritis, biopsied Antrum and pylorus mild linear and patchy gastritis, biopsied Duodenoscopy: Bulb mild duodenitis with posterior bulb 1.2 cm ulcer with sahu- white base, this was not actively bleeding but may be another reason why the patient may have the gastroparesis noted above. Second and third portions: Relatively normal-appearing distal to the ulcer. IMPRESSION: LA class C erosive esophagitis 8 cm likely a source of blood loss, 2 cm hiatal hernia, retained food consistent with gastroparesis, linear gastritis, duodenitis with duodenal ulcer which appeared to be quite deep and can likely the source for some of the patient's anemia as well. RECOMMENDATIONS: Follow up for biopsy results in 1-2 weeks by phone [phone] Continue anti-gastroesophageal reflux measures (avoid carbonated and acidic beverages, avoid eating within 2 hours of bedtime, avoid tight fitting clothing , and elevate the front bed posts 6 inches prior to sleeping. Protonix 40 mg p.o. IV twice daily, can switch over to p.o. tomorrow if tolerating the medication Start Reglan by IV 5 mg every 6 hours, switch this over to Reglan elixir tomorrow if tolerating the medication Full liquid diet initially. Cristian Bustillo MD COPY TO: Nalini Villa MD Anesthesia: MAC Surgeon / Physician: Cristian Bustillo Estimated blood loss: minimal Specimens: other (Gastric antrum/body, duodenum near ulcer margin) Condition: stable Disposition: post procedure unit ([facility]) Results - Labs CBC & BMP: 05/08/17 05:29 05/08/17 07:23 Discharge Plan - Discharge Medications No Action Tacrolimus Cap [Prograf Cap] 3 mg PO BID predniSONE TAB [PredniSONE] 10 mg PO QOTHER DAY Hydrocodone/Acetaminophen [Hydrocodon-Acetaminophn 10-325] 1 tablet PO TID Zolpidem Tartrate 10 mg PO BEDTIME Morphine Sulfate [Morphine Sulfate ER] 15 mg PO BID@0700,1900 azaTHIOprine [Imuran] 75 mg PO QAM - Follow Up or Referral - Forms/Instructions
--- NOTE | 2017-05-08 10:50 | Anesthesia Post-Op ---
Anesthesia Post OP - Post Ansesthetic Evaluation Patient seen in post op: Yes Resp: within normal limits CV: within normal limits Mental: within normal limits Temp: within normal limits [id number]: within normal limits Nausea and Vomiting: within normal limits Pain: within normal limits
--- NOTE | 2017-05-08 10:51 | Gastrointestinal Progress Note ---
Assessment and Plan (1) Duodenal ulcer Status: Acute Assessment and plan: This patient had a 1.2 cm duodenal ulcer just in the posterior bulb, this may be due to Helicobacter pylori versus NSAID. Practically speaking it may be part of the reason why the patient is having gastroparesis symptoms, as it represents a moderate grade obstruction to outflow from the duodenum. She needs to be on Protonix twice daily for 2 months and then once a day after that. She needs to avoid NSAIDs. We will start her on low-grade Reglan therapy first via IV and then switch that over to oral tomorrow. Biopsies are pending to look for Helicobacter pylori which may certainly be present and will need to be treated with appropriate doses of antibiotics if found. Current Visit: Yes (2) Erosive esophagitis Status: Acute Assessment and plan: This patient has atypical chest pain which is the reason why I was consulted, this turns out to be from severe erosive esophagitis that spans 8 cm in her distal esophagus and is likely the cause for some of her nausea. The condition is worsened by her gastroparesis which is allowing acid splash up to occur more frequently and consistently. The Reglan and acid blocking medication should help with this. We may wish to do a gastric emptying study eventually but keeping the patient off of her narcotics to whatever degree as possible will also help out with the underlying gastroparesis. Current Visit: Yes (3) Gastroparesis Status: Acute Assessment and plan: The patient had previously been evaluated [address] Rios and at [facility] in general with endoscopy to which we do not have access. I think it is certainly could be helpful to see if there is evidence of esophagitis versus just the previous gastritis and retained food seen on her last evaluation. The patient has not been on any medications for her gastroparesis and I think that we might be able to start Reglan at a low dose if she is concerned over toxicity with a higher dose. Starting at half the dose for patient who has a creatinine clearance lower than 40 ml/hr is recommended. Again, as yet we do not know if this medication is even required and we will not know until upper endoscopy is completed. I think that she would tolerate Reglan a great deal better than erythromycin although certainly the latter is complete metabolized in the liver. 05/08/17--This was verified on upper endoscopy today. We will try her on Reglan IV 5 mg every 6 hours to see if this helps to any appreciable degree. At the very least it should act as an antinauseant to help her from vomiting frequently. With her kidney dysfunction/transplant and the fact that this is metabolized mostly by the liver she should have no difficulty tolerating this level of metoclopramide. Current Visit: Yes (4) Anemia Status: Acute Assessment and plan: This patient is experiencing a decreased hematocrit to 30.2% which is down approximately a pint of blood to 2 points of blood. This may be due to renal/ bone marrow suppression with the antirejection drugs versus GI losses. Again this is another reason to perform upper endoscopy tomorrow. 05/08/17--I suspect that this patient's anemia is likely due to the erosive esophagitis and duodenal ulcer. Current Visit: Yes Gastroenterology - PN: Subj Interval history: Shira has not changed much in fact her abdominal pain is still quite severe. See above for reasons why. Exam (Progress Note) - Constitutional Vitals: Period Temp Pulse Resp BP Sys/Mosley Pulse Ox Last 24 Hr 96.8 F-98.4 F 75-84 17-20 120-146/68-105 95-100 General appearance: mild distress - Head Head exam: Present: normocephalic - Eye Eye exam: Present: EOMI - Respiratory Respiratory exam: Present: clear to auscultation bilaterally - Cardiovascular Cardiovascular exam: Present: regular rate and rhythm - GI/Abdominal GI/Abdominal exam: Present: normal bowel sounds, distended, tenderness, soft. Absent: guarding, rebound - Neurological Exam Neurological exam: Present: alert, oriented X3, CN II-XII intact. Absent: motor sensory deficit - Psychiatric Psychiatric exam: Present: normal affect, normal mood - Skin Skin exam: Present: warm Results - Labs CBC & BMP: 05/08/17 05:29 05/08/17 07:23
[2017-05-08] MEDS: PANTOPRAZOLE 40 MG TABLET PO SCH ×2 (11:44→21:00)
[2017-05-08] MEDS: azaTHIOprine 50 MG TABLET PO SCH (11:45)
[2017-05-08] MEDS: METOCLOPRAMIDE 10 MG/2 ML VIAL IV SCH ×2 (11:48→17:33)
--- NOTE | 2017-05-08 11:49 | Cardiology Progress Note ---
<Shawna Nowak - Last Filed: 05/08/17 13:12> Assessment and Plan - Time spent with patient Time spent with patient: Greater than 30 minutes (1) Non-cardiac chest pain Status: Acute Assessment and plan: SEE PLAN OF CARE LISTED BELOW. Current Visit: Yes (2) Anemia Status: Acute Assessment and plan: SEE PLAN OF CARE LISTED BELOW. Current Visit: Yes (3) Duodenal ulcer Status: Acute Assessment and plan: SEE PLAN OF CARE LISTED BELOW. Current Visit: Yes (4) Dyslipidemia Status: Chronic Assessment and plan: SEE PLAN OF CARE LISTED BELOW. Current Visit: Yes (5) Epigastric pain Status: Acute Assessment and plan: SEE PLAN OF CARE LISTED BELOW. Current Visit: Yes (6) Erosive esophagitis Status: Acute Assessment and plan: SEE PLAN OF CARE LISTED BELOW. Current Visit: Yes (7) Gastroparesis Status: Chronic Assessment and plan: SEE PLAN OF CARE LISTED BELOW. Current Visit: Yes (8) Status post kidney transplant Status: Chronic Assessment and plan: SEE PLAN OF CARE LISTED BELOW. Current Visit: No (9) Chronic pain Status: Chronic Assessment and plan: SEE PLAN OF CARE LISTED BELOW. Current Visit: Yes Qualifiers: Chronic pain type: chronic pain syndrome Qualified Code(s): G89.4 - Chronic pain syndrome (10) GERD (gastroesophageal reflux disease) Status: Chronic Assessment and plan: SEE PLAN OF CARE LISTED BELOW. Current Visit: Yes Qualifiers: Esophagitis presence: with esophagitis Qualified Code(s): K21.0 - Gastro- esophageal reflux disease with esophagitis (11) Hiatal hernia Status: Acute Assessment and plan: SEE PLAN OF CARE LISTED BELOW. Current Visit: Yes Cardiology - PN: Subj Interval history: SALES TEAM LEADER: Dr. Villa SUMMARY Ms. Parada, 41-year-old WF presented to [facility] with complaints of atypical chest pain and epigastric pain. Patient is a history of chronic pain syndrome, renal transplant and dyslipidemia. Patient chest pain relieved with a GI cocktail. Chest pain felt to be noncardiac in nature. She is also noted to be mildly anemic. GI consulted. She underwent EGD this morning. Echocardiogram yesterday revealed normal LV systolic function, ejection fraction 55%. Grade 1 diastolic dysfunction. Moderate TR. 2016 Patient was seen and examined on the telemetry unit. She underwent EGD this morning which revealed erosive esophagitis, linear gastritis, duodenitis with duodenal ulcer which appeared to be quite deep and can likely the source for patient's anemia as well as noncardiac chest pain. She is doing well post EGD. Without complaints. H&H is stable this morning at 9.5 and 32.4. She is also noted to have gastroparesis. IV Reglan has been initiated labs been reviewed. Vital signs are stable. At this point, we will continue current plan of care. No new recommendations. Patient available for discharge home tomorrow if she continues to improve. I will discuss discuss this further with Dr. Villa and await her additional recommendations ASSESSMENT/PLAN: 1. NONCARDIAC CHEST PAIN - Patient underwent EGD this morning. She was noted to have erosive esophagitis, linear gastritis, duodenitis with duodenal ulcer which appeared to be quite deep and can likely the source for patient's anemia as well as noncardiac chest pain. IV Protonix twice daily. 2. EPIGASTRIC PAIN - Continue IV Protonix. 3. ANEMIA - EGD this morning revealed erosive esophagitis, linear gastritis, duodenitis with duodenal ulcer which appeared to be quite deep and can likely the source for patient's anemia. IV Protonix twice daily. 4. STATUS POST RENAL TRANSPLANT - Last 2008 due to MCKD, creatinine 0.9, monitor closely. Nephrology following. 5. CHRONIC PAIN - Management per pain management. 6. DYSLIPIDEMIA - Fasted lipid panel reviewed, will consult dietary, recommend lifestyle changes. 7. GASTROPARESIS - Continue IV Reglan. 8. HIATAL HERNIA - Continue current plan of care Exam (Progress Note) - Constitutional Vitals: Period Temp Pulse Resp BP Sys/Mosley Pulse Ox Last 24 Hr 96.8 F-98.4 F 75-84 14-20 120-146/68-110 95-100 Exam: General: Appears well with no apparent distress. Pleasant and cooperative. Appears comfortable. HEENT: PERRL, normocephalic, atraumatic. Mucous membranes moist. No jaundice noted. Conjunctiva moist and clear, sclerae anicteric. Neck: No JVD/HJR, no thyromegaly or lymphadenopathy noted. No carotid bruit appreciated. Cardiac: Regular rate and rhythm. No murmur rub or gallop. PMI is nondisplaced. Lungs: Clear to auscultation without accessory muscle use to assist the respiratory pattern. No oxygen required. Tenderness to palpation and substernal chest area. Abdomen: Soft, bowel sounds normoactive. Tenderness to palpation in epigastric region, but nondistended. No abdominal bruit or thrill noted. No masses noted. Musculoskeletal: No fluid collection. Decreased range of motion is noted. Extremities: No clubbing, cyanosis noted. No edema noted. Upper extremity pulses 2+. Lower extremity pulses 2+. Capillary refill less than 3 seconds. Skin: No unusual lesions or rashes. No skin breakdown appreciated. Neuro: Awake, alert and oriented 3. Moves all extremities well without hemiparesis or paralysis. No essential tremor is appreciated. Result/EKG - Labs CBC & BMP: 05/08/17 05:29 05/08/17 07:23 Lab Results: I have reviewed the past 24 hour labs Labs: Laboratory Results - last 24 hr 05/08/17 05/08/17 05:29 07:23 WBC 5.5 RBC 3.59 L Hgb 9.5 L Hct 32.4 L MCV 90.3 MCH 27 MCHC 29.3 L RDW 15.3 Plt Count 283 D MPV 10.5 Neut % (Auto) 35.8 L Lymph % (Auto) 48.6 Brewster % (Auto) 9.0 Eos % (Auto) 4.6 Baso % (Auto) 1.1 H Neut # (Auto) 2.0 Lymph # (Auto) 2.7 Brewster # (Auto) 0.5 Eos # (Auto) 0.3 Baso # (Auto) 0.1 Total Counted 100 Immature Gran % 0.9 Nucleated RBC % 0.0 Immature Gran # 0.05 Segmented Neutrophils 39 L Lymphocytes 52 Monocytes 5 Eosinophils 4 Nucleated RBCs # 0.00 Platelet Estimate Adequate Giant Platelets Few Immature Plt Fraction 3.2 Ovalocytes Slight Sodium 138 Potassium 4.8 Chloride 107 Carbon Dioxide 26 Anion Gap 9.8 BUN 14 Creatinine 0.90 GFR Calculation 78 BUN/Creatinine Ratio 15.00 Glucose 81 Calculated Osmolality 274.7 Calcium 9.3 Magnesium 2.1 <Nalini Villa - Last Filed: 05/08/17 17:28> Assessment and Plan (1) Anemia Status: Acute Current Visit: Yes (2) History of renal transplant Status: Chronic Current Visit: Yes (3) Chest pain Status: Acute Current Visit: Yes (4) Chronic pain Status: Chronic Current Visit: Yes Qualifiers: Chronic pain type: chronic pain syndrome Qualified Code(s): G89.4 - Chronic pain syndrome (5) Epigastric pain Status: Acute Current Visit: Yes (6) Dyslipidemia Status: Chronic Current Visit: Yes Cardiology - PN: Subj Interval history: I have personally interviewed and examined the patient, reviewed the chart and discussed medical decision-making with practitioner Eliu. I have read this note and agree with the documentation herein. I personally discussed this case with Dr. Bustillo. We are going to continue to follow her overnight and see how she responds to the Reglan. I spoke with the patient and advised that she clarify with her transplant team whether or not we can Continue her long-term on the proton pump inhibitor therapy and to notify them of the addition of her Reglan. Exam (Progress Note) - Constitutional Vitals: Period Temp Pulse Resp BP Sys/Mosley Pulse Ox Last 24 Hr 96.9 F-98.4 F 75-100 14-20 124-146/76-110 96-100 Result/EKG - Labs CBC & BMP: 05/08/17 05:29 05/08/17 07:23 Labs: Laboratory Results - last 24 hr 05/08/17 05/08/17 05:29 07:23 WBC 5.5 RBC 3.59 L Hgb 9.5 L Hct 32.4 L MCV 90.3 MCH 27 MCHC 29.3 L RDW 15.3 Plt Count 283 D MPV 10.5 Neut % (Auto) 35.8 L Lymph % (Auto) 48.6 Brewster % (Auto) 9.0 Eos % (Auto) 4.6 Baso % (Auto) 1.1 H Neut # (Auto) 2.0 Lymph # (Auto) 2.7 Brewster # (Auto) 0.5 Eos # (Auto) 0.3 Baso # (Auto) 0.1 Total Counted 100 Immature Gran % 0.9 Nucleated RBC % 0.0 Immature Gran # 0.05 Segmented Neutrophils 39 L Lymphocytes 52 Monocytes 5 Eosinophils 4 Nucleated RBCs # 0.00 Platelet Estimate Adequate Giant Platelets Few Immature Plt Fraction 3.2 Ovalocytes Slight Sodium 138 Potassium 4.8 Chloride 107 Carbon Dioxide 26 Anion Gap 9.8 BUN 14 Creatinine 0.90 GFR Calculation 78 BUN/Creatinine Ratio 15.00 Glucose 81 Calculated Osmolality 274.7 Calcium 9.3 Magnesium 2.1
[2017-05-08] MEDS: TACROLIMUS 0.5 MG CAPSULE PO SCH ×2 (12:19→21:01)
[2017-05-08] MEDS: ONDANSETRON 4 MG/2 ML VIAL IV PRN ×2 (12:21→17:35)
--- NOTE | 2017-05-08 12:51 | Nephrology Progress Note ---
Nephrology - PN: Subj Interval history: Patient is status post EGD this morning. She reports eating and drinking well today. She is asking about stopping IV fluids. Physical exam general the patient chronically ill-appearing but in no acute distress Assessment/plan 1. Kidney transplant-continue immunosuppressive's 2. Chest pain-this patient had an upper endoscopy that revealed gastritis and esophagitis as well as some ulceration, looks like this is probably the cause of her chest discomfort, she has been started on Reglan 3. Chronic pain-continue present analgesics Exam (PN)-Nephrology - Vital Signs Vital signs: Period Temp Pulse Resp BP Sys/Mosley Pulse Ox Last 24 Hr 96.9 F-98.4 F 75-100 14-20 120-146/76-110 96-100 - Lab 05/08/17 05:29 05/08/17 07:23 Most recent lab results Calcium 9.3 MG/DL (8.5-10.1) 05/08/17 07:23 Magnesium 2.1 MG/DL (1.8-2.4) 05/08/17 07:23 Assessment and Plan (1) History of renal transplant Status: Chronic Assessment and plan: Patient's third transplanted kidney seems to be doing well on admission her creatinine was 0.9 mg/dL, will continue her present antirejection medications. 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
[2017-05-08] MEDS: ZALEPLON 5 MG CAPSULE PO SCH (21:00)
[2017-05-09] MEDS: METOCLOPRAMIDE 10 MG/2 ML VIAL IV SCH ×3 (00:43→13:03)
[2017-05-09] MEDS: SODIUM CHLORIDE 0.9% 1,000 ML IV SCH ×2 (01:34→09:08)
[2017-05-09 05:38] LABS: Basophils % 0.5 % (0.0-0.8); Eosinophils # 0.2 10*3/uL (0.0-0.87); Eosinophils % 2.4 % (0.00-10.9); Hematocrit 29.8 VOL% (35.7-47.0); Immature Granulocytes % 0.4 %; Immature Granulocytes Absolute 0.03 #; Lymphocytes # 2.6 10*3/uL (1.4-4.0); Lymphocytes % 33.2 % (21.3-54.2); Mean Corpuscular HGB Conc 30.2 GM/DL (32-36); Mean Corpuscular Hemoglobin 26 PG (27-34); Mean Corpuscular Volume 86.4 FL (87-102); Mean Platelet Volume 9.8 FL (9.6-12.0); Monocytes # 0.5 10*3/uL (0.11-0.8); Neutrophils # 4.5 10*3/uL (1.4-7.4); Neutrophils % 57.5 % (38.7-73.9); Platelet Count 341 T/CUMM (130-400); Red Blood Count 3.45 MC/CUMM (3.8-5.5); Red Cell Distribution Width 15.1 % (9.3-17.3); White Blood Count 7.8 T/CUMM (4-12)
[2017-05-09 06:06] LABS: Calcium 9.2 MG/DL (8.5-10.1); Magnesium 1.9 MG/DL (1.8-2.4); Osmolality,Calculated 279.1 MOS/KG (273-304); Potassium 4.6 MMOL/L (3.5-5.1)
[2017-05-09] MEDS: MORPHINE ER 15 MG TABLET PO SCH (06:37)
[2017-05-09] MEDS: TACROLIMUS 0.5 MG CAPSULE PO SCH (09:06)
[2017-05-09] MEDS: PANTOPRAZOLE 40 MG TABLET PO SCH (09:07)
[2017-05-09] MEDS: azaTHIOprine 50 MG TABLET PO SCH (09:07)
[2017-05-09 13:03] VITALS: BP 121/74
--- NOTE | 2017-05-09 13:49 | Gastrointestinal Progress Note ---
Assessment and Plan (1) Duodenal ulcer Status: Acute Assessment and plan: This patient had a 1.2 cm duodenal ulcer just in the posterior bulb, this may be due to Helicobacter pylori versus NSAID. Practically speaking it may be part of the reason why the patient is having gastroparesis symptoms, as it represents a moderate grade obstruction to outflow from the duodenum. She needs to be on Protonix twice daily for 2 months and then once a day after that. She needs to avoid NSAIDs. We will start her on low-grade Reglan therapy first via IV and then switch that over to oral tomorrow. Biopsies are pending to look for Helicobacter pylori which may certainly be present and will need to be treated with appropriate doses of antibiotics if found. 05/09/17--As mentioned above the patient's duodenal ulcer and severe esophagitis were reviewed with the patient who is actually feeling a great deal better at this point eating a solid diet. She is not having any tardive dyskinesia side effects but this was reviewed with her and she feels a great deal better. The pathology from the upper endoscopy is pending at this point but will call patient when these results return and adjust antibiotics accordingly, i.e., likely the amoxicillin will have to be adjusted downward while likely clarithromycin can be given at full-strength. Thank you for the opportunity to take care of this very pleasant patient I will be signing off at this time. Current Visit: Yes (2) Erosive esophagitis Status: Acute Assessment and plan: This patient has atypical chest pain which is the reason why I was consulted, this turns out to be from severe erosive esophagitis that spans 8 cm in her distal esophagus and is likely the cause for some of her nausea. The condition is worsened by her gastroparesis which is allowing acid splash up to occur more frequently and consistently. The Reglan and acid blocking medication should help with this. We may wish to do a gastric emptying study eventually but keeping the patient off of her narcotics to whatever degree as possible will also help out with the underlying gastroparesis. 05/09/17--The results of the endoscopy were again reviewed with the patient who understands her erosive esophagitis and how this caused a large portion of her atypical chest pain. The patient will be talking to Dr. Petit as an outpatient to see if she can adjust some of her pain medications downward to help decrease her propensity for gastroparesis. I think if she could get on 12.5 mg fentanyl patch, that would be ideal. Current Visit: Yes (3) Gastroparesis Status: Chronic Assessment and plan: The patient had previously been evaluated [address] Rios and at [facility] in general with endoscopy to which we do not have access. I think it is certainly could be helpful to see if there is evidence of esophagitis versus just the previous gastritis and retained food seen on her last evaluation. The patient has not been on any medications for her gastroparesis and I think that we might be able to start Reglan at a low dose if she is concerned over toxicity with a higher dose. Starting at half the dose for patient who has a creatinine clearance lower than 40 ml/hr is recommended. Again, as yet we do not know if this medication is even required and we will not know until upper endoscopy is completed. I think that she would tolerate Reglan a great deal better than erythromycin although certainly the latter is complete metabolized in the liver. 05/08/17--This was verified on upper endoscopy today. We will try her on Reglan IV 5 mg every 6 hours to see if this helps to any appreciable degree. At the very least it should act as an antinauseant to help her from vomiting frequently. With her kidney dysfunction/transplant and the fact that this is metabolized mostly by the liver she should have no difficulty tolerating this level of metoclopramide. 05/09/17--The patient tolerated her Reglan well and we are switching over to Reglan elixir. Current Visit: Yes (4) Anemia Status: Acute Assessment and plan: This patient is experiencing a decreased hematocrit to 30.2% which is down approximately a pint of blood to 2 points of blood. This may be due to renal/ bone marrow suppression with the antirejection drugs versus GI losses. Again this is another reason to perform upper endoscopy tomorrow. 05/08/17--I suspect that this patient's anemia is likely due to the erosive esophagitis and duodenal ulcer. 05/09/17--We should see this start to improve down the road some. It will take several months for the patient to rebuild her blood volume. Current Visit: Yes Gastroenterology - PN: Subj Interval history: Patient is doing much better today, she states that the Reglan is really helped her out and she is having almost no chest pain now. I have written prescriptions for her to take of the Protonix 40 mg twice daily in addition to the Reglan elixir 5 mg twice daily to 4 times daily depending on her bloating. The prescription has been left paperclip to the front of the chart. These medications will have minimal effect on her kidney function. Biopsies have been taken to look for Helicobacter pylori and if she requires antibiotic therapy we will definitely have to write her for an adjusted dose of amoxicillin and likely clear this through her [facility] transplant team. Exam (Progress Note) - Constitutional Vitals: Period Temp Pulse Resp BP Sys/Mosley Pulse Ox Last 24 Hr 97.1 F-98 F 69-84 18-20 112-137/74-93 95-99 General appearance: no acute distress - Head Head exam: Present: normocephalic - Eye Eye exam: Present: EOMI - ENT ENT exam: Present: normal exam - Respiratory Respiratory exam: Present: clear to auscultation bilaterally. Absent: rhonchi - Cardiovascular Cardiovascular exam: Present: regular rate and rhythm - GI/Abdominal GI/Abdominal exam: Present: normal bowel sounds, distended, tenderness (Minimal right upper quadrant pain from duodenal ulcer likely), soft. Absent: rebound - Neurological Exam Neurological exam: Present: alert, oriented X3 - Psychiatric Psychiatric exam: Present: normal affect, normal mood Results - Labs CBC & BMP: 05/09/17 05:28 05/09/17 05:28
--- NOTE | 2017-05-09 16:24 | Discharge Summary ---
Hospital Course - Hospital Course Hospital Course: CERTIFIED MEDICATION AIDE: Dr. Villa SUMMARY Ms. Parada, 41-year-old WF presented to [facility] with complaints of atypical chest pain and epigastric pain. Patient is a history of chronic pain syndrome, renal transplant and dyslipidemia. Patient chest pain relieved with a GI cocktail. She was also noted to be mildly anemic. She ruled out for myocardial infarction. Echocardiogram revealed normal LV systolic function, ejection fraction 55%. Grade 1 diastolic dysfunction[address] Moderate TR. Dr. Bustillo provide a consultation on the patient, she underwent EGD which demonstrated severe erosive esophagitis, peptic ulcer disease with some mild duodenal obstruction, and gastroparesis. She was initiated on proton pump inhibitor therapy and Reglan, and her symptoms improved dramatically. On the day of discharge she is able to tolerate p.o. intake, symptoms are improved, and she is hemodynamically stable. 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 Diagnosis - Discharge Diagnosis (1) Anemia Status: Acute (2) History of renal transplant Status: Chronic (3) Chest pain Status: Acute (4) Chronic pain Status: Chronic (5) Epigastric pain Status: Acute (6) Dyslipidemia Status: Chronic Discharge Plan - Discharge Data Disposition: Disch To Home/Self Care Condition at Discharge: Stable Discharge Diet: advance to your usual diet Activity: resume usual activities as tolerated Hygiene: no restrictions Driving: no restrictions - Discharge Medications New Metoclopramide Tab [Reglan Tab] 5 mg PO ACHS tablet Pantoprazole Tab [Protonix Tab] 40 mg PO BID tablet Continue Tacrolimus Cap [Prograf Cap] 3 mg PO BID predniSONE TAB [PredniSONE] 10 mg PO QOTHER DAY Hydrocodone/Acetaminophen [Hydrocodon-Acetaminophn 10-325] 1 tablet PO TID Zolpidem Tartrate 10 mg PO BEDTIME Morphine Sulfate [Morphine Sulfate ER] 15 mg PO BID@0700,1900 azaTHIOprine [Imuran] 75 mg PO QAM - Follow Up or Referral Follow Up: Cristian Bustillo MD [Physician] - 2 Weeks Nalini Villa MD [Physician] - (6 weeks ) - Forms/Instructions Exam - Constitutional Vitals: Period Temp Pulse Resp BP Sys/Mosley Pulse Ox Last 24 Hr 97.1 F-98 F 69-81 18-20 112-137/74-85 95-99 Exam: General: Appears well with no apparent distress. Pleasant and cooperative. Appears comfortable. HEENT: PERRL, normocephalic, atraumatic. Mucous membranes moist. No jaundice noted. Conjunctiva moist and clear, sclerae anicteric. Neck: No JVD/HJR, no thyromegaly or lymphadenopathy noted. No carotid bruit appreciated. Cardiac: Regular rate and rhythm. No murmur rub or gallop. PMI is nondisplaced. Lungs: Clear to auscultation without accessory muscle use to assist the respiratory pattern. No oxygen required. Tenderness to palpation and substernal chest area. Abdomen: Soft, bowel sounds normoactive. Tenderness to palpation in epigastric region, but nondistended. No abdominal bruit or thrill noted. No masses noted. Musculoskeletal: No fluid collection. Decreased range of motion is noted. Extremities: No clubbing, cyanosis noted. No edema noted. Upper extremity pulses 2+. Lower extremity pulses 2+. Capillary refill less than 3 seconds. Skin: No unusual lesions or rashes. No skin breakdown appreciated. Neuro: Awake, alert and oriented 3. Moves all extremities well without hemiparesis or paralysis. No essential tremor is appreciated. Discharge Results Procedures and tests throughout hospitalization: Pending Orders 05/08/17 19:00 Occult Blood, Stool Routine 05/10/17 04:00 BMP w/ Mg [Basic Metabolic Panel w/Mg] IN AM CBC [Comp Blood Count Auto Diff] IN AM 05/11/17 04:00 BMP w/ Mg [Basic Metabolic Panel w/Mg] IN AM CBC [Comp Blood Count Auto Diff] IN AM Labs on day of discharge: Labs from last 24 hours 05/09/17 05/09/17 05:28 05:28 WBC 7.8 D RBC 3.45 L Hgb 9.0 L Hct 29.8 L MCV 86.4 L MCH 26 L MCHC 30.2 L RDW 15.1 Plt Count 341 D MPV 9.8 Neut % (Auto) 57.5 Lymph % (Auto) 33.2 Atlantic % (Auto) 6.0 Eos % (Auto) 2.4 Baso % (Auto) 0.5 Neut # (Auto) 4.5 Lymph # (Auto) 2.6 Atlantic # (Auto) 0.5 Eos # (Auto) 0.2 Baso # (Auto) 0.0 Immature Gran % 0.4 Nucleated RBC % 0.0 Immature Gran # 0.03 Nucleated RBCs # 0.00 Immature Plt Fraction 0.0 Sodium 142 Potassium 4.6 Chloride 110 H Carbon Dioxide 24 Anion Gap 12.6 BUN 8 Creatinine 0.90 GFR Calculation 78 BUN/Creatinine Ratio 8.00 Glucose 84 Calculated Osmolality 279.1 Calcium 9.2 Magnesium 1.9 DS: Provider Date of admission: 05/06/17 13:26 Primary care physician: . No PCP Attending physician on admission: Nalini Villa, Consults: 05/06/17 15:53 Consult to Physician [CONS] Routine Comment: History of renal transplant Consulting Provider: John Guillermo When should Consulting Provider be notified: In am Person Notified: Evie Date Notified: 05/06/17 Time Notified: 16:19 05/06/17 16:23 Consult to Physician [CONS] Routine Comment: chronic pain, chest pain Consulting Provider: Colby Petit When should Consulting Provider be notified: Now Consult to Specialist Group: Pain Management Person Notified: Xochilt Date Notified: 05/07/17 Time Notified: 08:10 05/06/17 16:34 Consult to Physician [CONS] Routine Comment: chest wall pain, pt. had renal transplant Consulting Provider: Colby Petit When should Consulting Provider be notified: Now Consult to Specialist Group: Pain Management 05/06/17 16:40 Consult to Physician [CONS] Routine Comment: epigastric pain, anemia Consulting Provider: Cristian Bustillo Consult to Specialist Group: Gastroenterology Person Notified: Elma Date Notified: 05/07/17 Time Notified: 08:15 05/07/17 14:17 Consult to Anesthesiology [CONS] Routine Consulting Provider: Reason for Anesthesiology: Pre-op Clearance Discharging clinician: Nalini Villa, Expected date of discharge: 05/09/17
[2017-05-09] MEDS ORDERED: METOCLOPRAMIDE 5 MG TABLET PO SCH (16:30)
--- NOTE | 2017-05-11 12:24 | Pathology Report from [facility] ---
[facility] ACCESSION # : [id number] PATIENT NAME : Astrid Keys ORDERING DR : Cristian Bustillo MD CLINICAL HX: Gastroparesis - Anemia - Atypical chest pain - Epigastric pain POST-OP DX: #1 Ulcer margin in duodenum #2 Linear gastritis SPECIMEN INFO: #1 Duodenum #2 JUAREZ GROSS DESCRIPTION: #1 Received in formalin labeled with the patients name ASTRID KEYS and #1 consists of fragments of pink-thompson mucosal tissue collectively measuring 0.5 x 0.2 cm. Submitted in cassette #1.#2 Received in formalin labeled with the patients name ASTRID KEYS and #2 consists of three thompson mucosal tissue fragments collectively measuring 1.4 x 0.5 cm. Submitted in cassette #2. DIAGNOSIS FOR ASTRID KEYS: #1 DUODENUM BIOPSY: Chronic inflammation, polypoid regenerative mucosal changes. No evidence of granulomas, parasites, tumor or celiac disease.#2 JUAREZ BIOPSIES: Chronic superficial gastritis. H. pylori not seen on H&E or special stain with appropriate control. COLLECTED DATE: 05/08/2017 [facility] REPORT DATE: 05/11/2017 ELECTRONICALLY SIGNED BY: Lary Lobato M.D. 05/11/2017 - 10:25:21 VANE
== END 2017-05-09 16:47 | disposition home or self-care (01) | DRG 384 ==
LOC: EDBD → EDUNIT# → N.ED 11:12 → N.EDINP 13:26 → N.TELEN 15:42
PROVIDERS: ADMIT Internal Medicine Cardiovascular Disease; ATTEND Internal Medicine Cardiovascular Disease

== ENCOUNTER 2018-03-08 13:06 | Observation (INO) ==
[2018-03-08 14:56] LABS: Albumin 3.5 G/DL (3.4-5.0); Bilirubin,Total 0.4 MG/DL (0.2-1.0); Calcium 8.4 MG/DL (8.5-10.1); Osmolality,Calculated 289.8 MOS/KG (273-304); Potassium 3.8 MMOL/L (3.5-5.1); Total Protein 7.2 G/DL (6.4-8.3)
[2018-03-08 14:57] LABS: Basophils # 0.1 10*3/uL (0.0-0.2); Basophils % 0.5 % (0.0-0.8); Eosinophils % 0.3 % (0.00-10.9); Hematocrit 38.4 VOL% (35.7-47.0); Hemoglobin 12.4 GM/DL (12.0-16.0); INR 1.3; Immature Granulocytes % 0.5 %; Immature Granulocytes Absolute 0.05 #; Lymphocytes # 2.9 10*3/uL (1.4-4.0); Lymphocytes % 29.7 % (21.3-54.2); Mean Corpuscular HGB Conc 32.3 GM/DL (32-36); Mean Corpuscular Hemoglobin 26 PG (27-34); Mean Corpuscular Volume 81.9 FL (87-102); Mean Platelet Volume 10.2 FL (9.6-12.0); Monocytes # 0.6 10*3/uL (0.11-0.8); Monocytes % 6.1 % (1.7-12.7); Neutrophils % 62.9 % (38.7-73.9); PT Patient Result 13.4 SECS; Partial Thromboplastin Time < 21.0 SECS (0-40); Platelet Count 318 T/CUMM (130-400); Red Blood Count 4.69 MC/CUMM (3.8-5.5); Red Cell Distribution Width 16.4 % (9.3-17.3); White Blood Count 9.6 T/CUMM (4-12)
[2018-03-08 15:09] LABS: Apearance,Urine CLEAR (Clear); Bilirubin,Urine Negative (Negative); Blood, Urine Small mg/dL (Negative); Glucose,Urine (UA) Negative (Negative); Ketones,Urine Negative (Negative); Mucus,Urine Occasional /LPF (Occasional); Nitrite,Urine Negative (Negative); Protein,Urine 30 MG/DL; RBC,Urine 3 /HPF (0-4); Squamous Epithelial Cell,Urine Occasional /HPF (0-10); Urine Color Yellow (Yellow); Urine Specific Gravity 1.026 (1.001-1.035); Urine Urobilinogen < 2.0 EU/DL (0.2-1.0); WBC,Urine 2 /HPF (0-6)
[2018-03-08 15:29] LABS: Barbiturates Screen,Urine Negative (Negative); Benzodiazepines Screen,Urine Negative (Negative); Cannabinoid Screen,Urine Negative (Negative); Opiate Screen,Urine Positive (Negative); Phencyclidine Screen,Urine Negative (Negative)
[2018-03-09 06:29] LABS: Basophils # 0.1 10*3/uL (0.0-0.2); Basophils % 0.7 % (0.0-0.8); Eosinophils # 0.2 10*3/uL (0.0-0.87); Eosinophils % 3.2 % (0.00-10.9); Hematocrit 32.3 VOL% (35.7-47.0); Hemoglobin 10.7 GM/DL (12.0-16.0); Immature Granulocytes % 0.3 %; Immature Granulocytes Absolute 0.02 #; Lymphocytes # 3.3 10*3/uL (1.4-4.0); Lymphocytes % 46.7 % (21.3-54.2); Mean Corpuscular HGB Conc 33.1 GM/DL (32-36); Mean Corpuscular Hemoglobin 27 PG (27-34); Mean Corpuscular Volume 81.2 FL (87-102); Mean Platelet Volume 10.5 FL (9.6-12.0); Monocytes # 0.6 10*3/uL (0.11-0.8); Monocytes % 8.2 % (1.7-12.7); Neutrophils # 2.9 10*3/uL (1.4-7.4); Neutrophils % 40.9 % (38.7-73.9); Platelet Count 237 T/CUMM (130-400); Red Blood Count 3.98 MC/CUMM (3.8-5.5); Red Cell Distribution Width 16.1 % (9.3-17.3); White Blood Count 7.1 T/CUMM (4-12)
[2018-03-09 07:03] LABS: Calcium 7.8 MG/DL (8.5-10.1); Osmolality,Calculated 285.8 MOS/KG (273-304); Potassium 3.2 MMOL/L (3.5-5.1); Risk Ratio 1.58; Thyroid Stimulating Hormone 3.43 uIU/ml (0.358-3.74)
[2018-03-10 06:21] LABS: Calcium 8.2 MG/DL (8.5-10.1); Osmolality,Calculated 284.1 MOS/KG (273-304); Potassium 4.5 MMOL/L (3.5-5.1)
[2018-03-10 10:55] VITALS: BP 155/99
== END 2018-03-10 12:45 | disposition home or self-care (01) ==
LOC: EDUNIT# → N.ED 13:06 → N.EDINP 13:06 → N.5E 17:28
PROVIDERS: ADMIT Internal Medicine; ATTEND Internal Medicine

== ENCOUNTER 2019-02-06 21:04 | Inpatient (IN) ==
[2019-02-06] MEDS ORDERED: ALBUTEROL 2.5 MG/3 ML NEB RESP TX STA (21:36)
[2019-02-06 21:38] LABS: Basophils # 0.1 10*3/uL (0.0-0.2); Basophils % 0.9 % (0.0-0.8); Eosinophils # 0.1 10*3/uL (0.0-0.87); Eosinophils % 0.5 % (0.00-10.9); Immature Granulocytes % 0.7 %; Immature Granulocytes Absolute 0.11 #; Lymphocytes # 2.1 10*3/uL (1.4-4.0); Lymphocytes % 13.3 % (21.3-54.2); Mean Corpuscular HGB Conc 29.6 GM/DL (32-36); Mean Corpuscular Volume 87.2 FL (87-102); Mean Platelet Volume 9.7 FL (9.6-12.0); Neutrophils % 78.6 % (38.7-73.9); Platelet Count 346 T/CUMM (130-400); Red Blood Count 4.61 MC/CUMM (3.8-5.5); Red Cell Distribution Width 17.7 % (9.3-17.3)
[2019-02-06 21:45] LABS: INR 0.9; PT Patient Result 10.2 SECS
[2019-02-06 21:50] LABS: ABG Base Excess -1.7 MMOL/L (-2.5-2.5); ABG Oxygen Saturation 99.9 % (95-100); ABG PH 7.374 (7.35-7.45); ABG TCO2 20.9 MMOL/L (23-27); Allen Test Positive
[2019-02-06 22:14] LABS: Alanine Aminotransferase 22 U/L (13-56); Albumin 3.3 G/DL (3.4-5.0); Alkaline Phosphatase 123 U/L (45-117); Aspartate Amino Transferase 20 U/L (0-37); Bilirubin,Total < 0.39 MG/DL (0.2-1.0); Blood Urea Nitrogen 13 MG/DL (7-18); Calcium 8.1 MG/DL (8.5-10.1); Glucose 100 MG/DL (74-106); Osmolality,Calculated 287.7 MOS/KG (273-304); Total Protein 7.2 G/DL (6.4-8.3); Troponin I < 0.015 NG/ML (0.00-0.045)
[2019-02-06 22:26] LABS: Apearance,Urine CLEAR (Clear); Bilirubin,Urine Negative (Negative); Blood, Urine Negative (Negative); Glucose,Urine (UA) Negative (Negative); Hyaline Casts,Urine 1 /LPF (0-3); Ketones,Urine Negative (Negative); Mucus,Urine Occasional /LPF (Occasional); Nitrite,Urine Negative (Negative); Protein,Urine Negative; RBC,Urine <1 /HPF (0-4); Urine Color Straw (Yellow); Urine Specific Gravity 1.009 (1.001-1.035); Urine Urobilinogen < 2.0 EU/DL (0.2-1.0); WBC,Urine <1 /HPF (0-6)
[2019-02-06 22:33] LABS: Lymphocytes 19 % (20-55); Segmented Neutrophils 78 % (50-85); Total Cells Counted 100
[2019-02-06 22:34] LABS: Anisocytosis 1+; Platelet Estimate Adequate
[2019-02-06 22:38] LABS: Salicylate < 2.8 MG/DL (2.8-20)
[2019-02-06 22:39] LABS: Acetaminophen < 2.0 UG/ML (10-30)
[2019-02-06] MEDS ORDERED: LEVOFLOXACIN INJ 750 MG in PREMIX 1 EACH IV STA (22:43)
[2019-02-06] MEDS ORDERED: CLINDAMYCIN INJ 600 MG in PREMIX 1 EACH IV STA (22:43)
[2019-02-06 22:45] LABS: Barbiturates Screen,Urine Negative (Negative); Benzodiazepines Screen,Urine Negative (Negative); Cannabinoid Screen,Urine Negative (Negative); Opiate Screen,Urine Negative (Negative); Phencyclidine Screen,Urine Negative (Negative)
[2019-02-06] MEDS ORDERED: ETOMIDATE 20 MG/10 ML VIAL IV ONE (23:43)
[2019-02-06] MEDS ORDERED: ROCURONIUM 100 MG/10 ML VIAL IV ONE (23:44)
[2019-02-07] MEDS ORDERED: ONDANSETRON 4 MG/2 ML VIAL IV PRN (00:26)
[2019-02-07] MEDS ORDERED: POTASSIUM CHLORIDE 20 MEQ/15 ML UDCUP PO ONE (00:31)
[2019-02-07 01:04] LABS: Risk Ratio 2.17; VLDL CHOLESTEROL 54.8 MG/DL
[2019-02-07] MEDS: ALBUTEROL/IPRATROPIUM 3 ML NEB RESP TX SCH ×5 (02:30→19:22)
[2019-02-07] MEDS ORDERED: MAGNESIUM SULF RIDER 2 GM in PREMIX 1 EACH IV PRN (03:24)
[2019-02-07] MEDS ORDERED: MAGNESIUM SULF RIDER 4 GM in PREMIX 1 EACH IV PRN (03:24)
[2019-02-07] MEDS: ENOXAPARIN 40 MG/0.4 ML SYRINGE SUBCUT SCH ×2 (04:00→23:58)
[2019-02-07] MEDS: SODIUM CHLORIDE 0.9% 1,000 ML IV SCH ×4 (04:01→23:57)
[2019-02-07] MEDS: POTASSIUM CHLORIDE 20 MEQ TABLET PO PRN ×3 (04:02→09:15)
[2019-02-07 05:58] LABS: Basophils # 0.1 10*3/uL (0.0-0.2); Basophils % 0.4 % (0.0-0.8); Eosinophils # 0.1 10*3/uL (0.0-0.87); Eosinophils % 0.6 % (0.00-10.9); Hematocrit 32.8 VOL% (35.7-47.0); Hemoglobin 9.8 GM/DL (12.0-16.0); Immature Granulocytes % 0.4 %; Immature Granulocytes Absolute 0.07 #; Lymphocytes % 12.7 % (21.3-54.2); Mean Corpuscular HGB Conc 29.9 GM/DL (32-36); Mean Corpuscular Volume 85.4 FL (87-102); Mean Platelet Volume 9.6 FL (9.6-12.0); Monocytes % 8.2 % (1.7-12.7); Neutrophils % 77.7 % (38.7-73.9); Platelet Count 374 T/CUMM (130-400); Red Blood Count 3.84 MC/CUMM (3.8-5.5); Red Cell Distribution Width 17.6 % (9.3-17.3); White Blood Count 15.7 T/CUMM (4-12)
[2019-02-07 06:29] LABS: Calcium 8.1 MG/DL (8.5-10.1); Osmolality,Calculated 276.7 MOS/KG (273-304)
[2019-02-07] MEDS: PANTOPRAZOLE 40 MG TABLET PO SCH (09:15)
[2019-02-07] MEDS: LORazepam 1 MG TABLET PO SCH ×2 (09:50→21:04)
[2019-02-07] MEDS ORDERED: ACETAMINOPHEN 325 MG TABLET PO PRN (13:38)
[2019-02-07] MEDS ORDERED: ACETAMINOPHEN 325 MG TABLET ONE (13:41)
[2019-02-07] MEDS ORDERED: LEVOFLOXACIN INJ 500 MG in PREMIX 1 EACH IV SCH (22:00)
[2019-02-08] MEDS: ALBUTEROL/IPRATROPIUM 3 ML NEB RESP TX SCH ×4 (01:43→12:04)
[2019-02-08 08:59] VITALS: BP 158/91
[2019-02-08 09:22] LABS: Calcium 8.7 MG/DL (8.5-10.1); Osmolality,Calculated 280.3 MOS/KG (273-304)
[2019-02-08] MEDS: LORazepam 1 MG TABLET PO SCH (09:32)
[2019-02-08] MEDS: PANTOPRAZOLE 40 MG TABLET PO SCH (09:32)
== END 2019-02-08 12:16 | disposition home or self-care (01) | DRG 917 ==
LOC: EDBD → EDUNIT# → N.ED 21:04 → N.EDINP 02-07 00:26 → N.CC 02-07 02:49 → N.TELES 02-07 10:04
PROVIDERS: ADMIT Internal Medicine; ATTEND Internal Medicine

== ENCOUNTER 2019-06-24 14:02 | Inpatient (IN) ==
[2019-06-24 15:55] LABS: Basophils # 0.1 10*3/uL (0.0-0.2); Basophils % 0.6 % (0.0-0.8); Eosinophils % 0.1 % (0.00-10.9); Hematocrit 34.7 VOL% (35.7-47.0); Hemoglobin 11.6 GM/DL (12.0-16.0); Immature Granulocytes % 0.4 %; Immature Granulocytes Absolute 0.05 #; Lymphocytes # 4.3 10*3/uL (1.4-4.0); Lymphocytes % 37.4 % (21.3-54.2); Mean Corpuscular HGB Conc 33.4 GM/DL (32-36); Mean Corpuscular Volume 78.5 FL (87-102); Monocytes % 4.7 % (1.7-12.7); Neutrophils % 56.8 % (38.7-73.9); Platelet Count 381 T/CUMM (130-400); Red Blood Count 4.42 MC/CUMM (3.8-5.5); Red Cell Distribution Width 20.3 % (9.3-17.3); White Blood Count 11.5 T/CUMM (4-12)
[2019-06-24 16:04] LABS: Apearance,Urine CLEAR (Clear); Bilirubin,Urine Negative (Negative); Blood, Urine Negative (Negative); Glucose,Urine (UA) Negative (Negative); Ketones,Urine Negative (Negative); Nitrite,Urine Negative (Negative); Protein,Urine Negative; RBC,Urine 2 /HPF (0-4); Urine Color Straw (Yellow); Urine Specific Gravity 1.013 (1.001-1.035); Urine Urobilinogen < 2.0 EU/DL (0.2-1.0); WBC,Urine 1 /HPF (0-6)
[2019-06-24 16:10] LABS: Acetaminophen < 2.0 UG/ML (10-30); Salicylate < 2.8 MG/DL (2.8-20)
[2019-06-24 16:20] LABS: Albumin 3.4 G/DL (3.4-5.0); Barbiturates Screen,Urine Negative (Negative); Benzodiazepines Screen,Urine Positive (Negative); Bilirubin,Total 0.5 MG/DL (0.2-1.0); Calcium 7.9 MG/DL (8.5-10.1); Cannabinoid Screen,Urine Negative (Negative); Opiate Screen,Urine Negative (Negative); Osmolality,Calculated 263.7 MOS/KG (273-304); Phencyclidine Screen,Urine Negative (Negative); Total Protein 6.8 G/DL (6.4-8.3)
[2019-06-24] MEDS ORDERED: POTASSIUM CHLORIDE 8 MEQ CAPSULE PO STA (16:26)
[2019-06-24] MEDS ORDERED: SODIUM CHLORIDE 0.9% 1,000 ML IV STA (16:26)
[2019-06-24] MEDS ORDERED: THIAMINE INJ 100 MG, FOLIC ACID INJ 1 MG, MULTIVITAMIN INJ 10 ML in SODIUM CHLORIDE 0.9... IV STA (17:29)
[2019-06-24] MEDS ORDERED: ALBUTEROL 2.5 MG/3 ML NEB RESP TX PRN ×2 (18:47→18:54)
[2019-06-24] MEDS: LORazepam 2 MG/1 ML VIAL IV PRN (19:26)
[2019-06-24] MEDS: ONDANSETRON 4 MG/2 ML VIAL IV PRN (19:29)
[2019-06-24] MEDS: traZODone 50 MG TABLET PO SCH (21:32)
[2019-06-24] MEDS: SODIUM CHLORIDE 0.9% 1,000 ML IV SCH (21:32)
[2019-06-24] MEDS: busPIRone 5 MG TABLET PO SCH (21:33)
[2019-06-24] MEDS: ENOXAPARIN 40 MG/0.4 ML SYRINGE SUBCUT SCH (21:33)
[2019-06-24] MEDS: MELATONIN 3 MG TABLET PO PRN (21:33)
[2019-06-25] MEDS: LORazepam 2 MG/1 ML VIAL IV PRN ×5 (06:31→19:05)
[2019-06-25 07:28] LABS: Albumin 2.2 G/DL (3.4-5.0); Bilirubin,Total 0.6 MG/DL (0.2-1.0); Calcium 6.4 MG/DL (8.5-10.1); Osmolality,Calculated 279.4 MOS/KG (273-304); Total Protein 4.8 G/DL (6.4-8.3)
[2019-06-25] MEDS ORDERED: POTASSIUM CHLORIDE INJ 50 MEQ in SODIUM CHLORIDE 0.9% 500 ML IV ONE (08:00)
[2019-06-25] MEDS: FOLIC ACID 1 MG TABLET PO SCH (08:11)
[2019-06-25] MEDS: THIAMINE 100 MG TABLET PO SCH (08:11)
[2019-06-25] MEDS: LOSARTAN 50 MG TABLET PO SCH (08:13)
[2019-06-25] MEDS: PANTOPRAZOLE 40 MG TABLET PO SCH (08:13)
[2019-06-25] MEDS: ESCITALOPRAM 10 MG TABLET PO SCH (08:13)
[2019-06-25] MEDS: hydroCHLOROthiazide 12.5 MG CAPSULE PO SCH (08:13)
[2019-06-25] MEDS: busPIRone 5 MG TABLET PO SCH ×3 (08:13→23:32)
[2019-06-25] MEDS: MULTIVITAMIN (CENTRUM) TABLET PO SCH (08:13)
[2019-06-25] MEDS: LISINOPRIL 20 MG TABLET PO SCH (08:14)
[2019-06-25 08:41] LABS: Basophils # 0.1 10*3/uL (0.0-0.2); Basophils % 0.8 % (0.0-0.8); Eosinophils # 0.1 10*3/uL (0.0-0.87); Eosinophils % 0.9 % (0.00-10.9); Hematocrit 28.1 VOL% (35.7-47.0); Immature Granulocytes % 0.5 %; Immature Granulocytes Absolute 0.03 #; Lymphocytes # 1.7 10*3/uL (1.4-4.0); Mean Corpuscular Volume 81.9 FL (87-102); Mean Platelet Volume 10.5 FL (9.6-12.0); Monocytes % 8.3 % (1.7-12.7); Neutrophils % 63.5 % (38.7-73.9); Platelet Count 255 T/CUMM (130-400); Red Blood Count 3.43 MC/CUMM (3.8-5.5); Red Cell Distribution Width 20.7 % (9.3-17.3); White Blood Count 6.5 T/CUMM (4-12)
[2019-06-25] MEDS: SODIUM CHLORIDE 0.9% 1,000 ML IV SCH (10:03)
[2019-06-25] MEDS: ONDANSETRON 4 MG/2 ML VIAL IV PRN (10:40)
[2019-06-25] MEDS ORDERED: MAGNESIUM SULF RIDER 4 GM in PREMIX 1 EACH IV PRN (14:13)
[2019-06-25] MEDS ORDERED: MAGNESIUM SULF RIDER 2 GM in PREMIX 1 EACH IV PRN (14:13)
[2019-06-25] MEDS: MAGNESIUM OXIDE 400 MG TABLET PO SCH (14:20)
[2019-06-25] MEDS: MELATONIN 3 MG TABLET PO PRN (23:32)
[2019-06-25] MEDS: traZODone 50 MG TABLET PO SCH (23:32)
[2019-06-25] MEDS: ENOXAPARIN 40 MG/0.4 ML SYRINGE SUBCUT SCH (23:35)
[2019-06-26 05:44] LABS: Basophils % 0.5 % (0.0-0.8); Eosinophils # 0.3 10*3/uL (0.0-0.87); Eosinophils % 4.2 % (0.00-10.9); Hematocrit 28.5 VOL% (35.7-47.0); Hemoglobin 8.7 GM/DL (12.0-16.0); Immature Granulocytes % 0.3 %; Immature Granulocytes Absolute 0.02 #; Lymphocytes # 2.4 10*3/uL (1.4-4.0); Lymphocytes % 31.1 % (21.3-54.2); Mean Corpuscular HGB Conc 30.5 GM/DL (32-36); Mean Corpuscular Volume 85.6 FL (87-102); Mean Platelet Volume 9.7 FL (9.6-12.0); Neutrophils % 57.9 % (38.7-73.9); Platelet Count 221 T/CUMM (130-400); Red Blood Count 3.33 MC/CUMM (3.8-5.5); Red Cell Distribution Width 21.4 % (9.3-17.3); White Blood Count 7.8 T/CUMM (4-12)
[2019-06-26 06:19] LABS: Calcium 7.9 MG/DL (8.5-10.1); Osmolality,Calculated 283.1 MOS/KG (273-304)
[2019-06-26] MEDS: LORazepam 2 MG/1 ML VIAL IV PRN ×2 (06:50→08:45)
[2019-06-26] MEDS: LISINOPRIL 20 MG TABLET PO SCH (08:44)
[2019-06-26] MEDS: MAGNESIUM OXIDE 400 MG TABLET PO SCH (08:44)
[2019-06-26] MEDS: FOLIC ACID 1 MG TABLET PO SCH (08:44)
[2019-06-26] MEDS: THIAMINE 100 MG TABLET PO SCH (08:44)
[2019-06-26] MEDS: MULTIVITAMIN (CENTRUM) TABLET PO SCH (08:44)
[2019-06-26] MEDS: busPIRone 5 MG TABLET PO SCH ×3 (08:44→20:00)
[2019-06-26] MEDS: POTASSIUM CHLORIDE RIDER 10 MEQ in PREMIX 1 EACH IV PRN ×3 (08:45→14:53)
[2019-06-26] MEDS: ESCITALOPRAM 10 MG TABLET PO SCH (08:45)
[2019-06-26] MEDS: PANTOPRAZOLE 40 MG TABLET PO SCH (08:45)
[2019-06-26] MEDS: LOSARTAN 50 MG TABLET PO SCH (08:45)
[2019-06-26] MEDS: hydroCHLOROthiazide 12.5 MG CAPSULE PO SCH (08:45)
[2019-06-26] MEDS ORDERED: LORazepam 2 MG/1 ML VIAL IV PRN (12:13)
[2019-06-26] MEDS: SODIUM CHLORIDE 0.9% 1,000 ML IV SCH (12:13)
[2019-06-26] MEDS ORDERED: ACETAMINOPHEN 500 MG TABLET PO PRN (12:13)
[2019-06-26] MEDS ORDERED: ALUMINUM/MAGNES/SIMETH MAX STR 30 ML UDCUP PO PRN (12:13)
[2019-06-26] MEDS: POTASSIUM CHLORIDE 20 MEQ TABLET PO SCH ×3 (12:17→17:41)
[2019-06-26] MEDS: LORazepam 1 MG TABLET PO PRN ×4 (13:03→22:56)
[2019-06-26] MEDS ORDERED: MAGNESIUM SULF RIDER 2 GM in PREMIX 1 EACH IV ONE (16:00)
[2019-06-26] MEDS: traZODone 50 MG TABLET PO SCH (20:00)
[2019-06-26] MEDS: MELATONIN 3 MG TABLET PO PRN (20:00)
[2019-06-26] MEDS: ONDANSETRON 4 MG/2 ML VIAL IV PRN (20:50)
[2019-06-27] MEDS: ENOXAPARIN 40 MG/0.4 ML SYRINGE SUBCUT SCH (00:53)
[2019-06-27] MEDS ORDERED: LORazepam 1 MG TABLET PO ONE (01:00)
[2019-06-27] MEDS: LORazepam 1 MG TABLET PO PRN ×4 (01:53→14:22)
[2019-06-27 05:22] LABS: Basophils # 0.1 10*3/uL (0.0-0.2); Basophils % 0.5 % (0.0-0.8); Eosinophils # 0.7 10*3/uL (0.0-0.87); Eosinophils % 6.6 % (0.00-10.9); Hematocrit 28.6 VOL% (35.7-47.0); Hemoglobin 8.9 GM/DL (12.0-16.0); Immature Granulocytes % 0.6 %; Immature Granulocytes Absolute 0.07 #; Lymphocytes # 2.8 10*3/uL (1.4-4.0); Lymphocytes % 26.1 % (21.3-54.2); Mean Corpuscular HGB Conc 31.1 GM/DL (32-36); Mean Corpuscular Volume 83.6 FL (87-102); Mean Platelet Volume 10.3 FL (9.6-12.0); Neutrophils % 61.2 % (38.7-73.9); Platelet Count 235 T/CUMM (130-400); Red Blood Count 3.42 MC/CUMM (3.8-5.5); Red Cell Distribution Width 21.9 % (9.3-17.3); White Blood Count 10.8 T/CUMM (4-12)
[2019-06-27 05:40] LABS: % Iron Saturation 5.4 % (18-50); Calcium 8.6 MG/DL (8.5-10.1); Ferritin 66.3 ng/ml (8-252); Osmolality,Calculated 278.4 MOS/KG (273-304)
[2019-06-27] MEDS: IRON SUCROSE 300 MG in SODIUM CHLORIDE 0.9% 100 ML IV ONE ×3 (07:43→09:50)
[2019-06-27] MEDS: MAGNESIUM OXIDE 400 MG TABLET PO SCH (08:25)
[2019-06-27] MEDS: FOLIC ACID 1 MG TABLET PO SCH (08:26)
[2019-06-27] MEDS: ESCITALOPRAM 10 MG TABLET PO SCH (08:26)
[2019-06-27] MEDS: PANTOPRAZOLE 40 MG TABLET PO SCH (08:26)
[2019-06-27] MEDS: busPIRone 5 MG TABLET PO SCH ×2 (08:26→14:22)
[2019-06-27] MEDS: MULTIVITAMIN (CENTRUM) TABLET PO SCH (08:26)
[2019-06-27] MEDS: THIAMINE 100 MG TABLET PO SCH (08:26)
[2019-06-27] MEDS: LISINOPRIL 20 MG TABLET PO SCH (08:26)
[2019-06-27 15:29] VITALS: BP 98/73
== END 2019-06-27 18:00 | DRG 880 ==
LOC: EDBD → EDUNIT# → N.ED 14:02 → N.EDINP 18:47 → SUATTDRO 18:47 → N.ICU 19:46 → N.4E 06-25 15:17
PROVIDERS: ADMIT Family Medicine; ATTEND Internal Medicine